=== PATIENT | male | born 1935 | race Caucasian/White ===

== ENCOUNTER 2017-03-28 13:00 | Outpatient (CLI) | payer MEDICARE, OTHER ==
[2016-08-04 12:31] VITALS: BMI 25.8
[~2017-03-28 13:00] MED LIST: ACETAMINOPHEN325 MG PO; ACETAMINOPHEN500 M1; FELODIPINE ER10 MG PO; GLUCOPHAGE1000 MG PO; GLUCOTROL 5 MG T5 MG PO; LISINOPRIL-HCTZ1 T13 PO; OMEPRAZOLE40 MG PO; ZANTAC150 MG PO; ZOCOR40 MG PO
== END 2017-03-28 23:59 | disposition home or self-care (01) ==
LOC: D.RAD 13:00
DX: R13.10 Dysphagia, unspecified (principal)

== ENCOUNTER → 2017-06-02 10:43 | Outpatient (CLI) | payer MEDICARE, OTHER ==
[2016-08-04 12:31] VITALS: BMI 25.8
== END | disposition home or self-care (01) ==
LOC: D.US 10:43
DX: R60.0 Localized edema (principal)

== ENCOUNTER → 2017-07-27 09:51 | Outpatient (CLI) | payer MEDICARE, OTHER ==
[2016-08-04 12:31] VITALS: BMI 25.8
[~2017-07-27 09:51] MED LIST changes: +FLOMAX0.4 MG PO; +LISINOPRIL10 MG PO; +PEPCID AC20 MG PO; +PLAVIX75 MG PO; +SYNTHROID50 MCG PO
== END | disposition home or self-care (01) ==
LOC: D.CT 09:51
DX: R10.13 Epigastric pain (principal)

== ENCOUNTER → 2017-11-18 07:08 | Outpatient (CLI) | payer MEDICARE, OTHER ==
[2016-08-04 12:31] VITALS: BMI 25.8
[~2017-11-18 07:08] MED LIST changes: -FLOMAX0.4 MG PO; -LISINOPRIL10 MG PO; -PEPCID AC20 MG PO; -PLAVIX75 MG PO; -SYNTHROID50 MCG PO
== END | disposition home or self-care (01) ==
LOC: D.CT 07:08
DX: R94.30 Abnormal result of cardiovascular function study, unspecified (principal); I65.23 Occlusion and stenosis of bilateral carotid arteries

== ENCOUNTER 2017-11-28 05:04 | Inpatient (IN) | payer MEDICARE, OTHER ==
[2017-11-25 12:00] LABS: HEMATOCRIT 34.7 % (42.0-54.0); HEMOGLOBIN 11.9 g/dL (13.5-17.5); MCH 31.3 pg (26.0-34.0); MCHC 34.3 g/dL (31.0-37.0); MCV 91.3 fL (80.0-100.0); MEAN PLATELET VOLUME 10.3 fL (7.4-10.4); RBC 3.8 10x6/uL (4.20-6.10); RDW 12.6 % (11.5-14.5); WBC 7.2 10x3/uL (4.8-10.8)
[2017-11-25 12:29] LABS: APTT 27.5 SECONDS (22.8-39.4); PROTIME 12.8 SECONDS (11.6-15.0)
[2017-11-25 12:32] LABS: ALBUMIN 3.9 g/dL (3.4-5.0); ANION GAP 15.4 mmol/L (8-16); BILIRUBIN - TOTAL 0.67 mg/dL (0.2-1.3); CALCIUM 9.1 mg/dL (8.5-10.1); CARBON DIOXIDE 24.7 mmol/L (21.0-32.0); CREATININE - SERUM 1.6 mg/dL (0.6-1.3); POTASSIUM - SERUM 4.1 mmol/L (3.5-5.1); PROTEIN - SERUM 7.9 g/dL (6.4-8.2)
[2017-11-25 12:38] LABS: APPEARANCE HAZY (CLEAR); BACTERIA FEW /hpf (NONE SEEN); BILIRUBIN NEGATIVE (NEGATIVE); COLOR YELLOW (YELLOW); EPITHELIAL CELLS RARE /hpf (0-5); GLUCOSE 50 mg/dL (NEGATIVE); KETONE NEGATIVE (NEGATIVE); MUCUS <1+ /lpf (NONE SEEN); NITRITE NEGATIVE (NEGATIVE); PROTEIN 1+ mg/dL (NEGATIVE); RED CELLS - URINE 0-5 /hpf (0-5); SPECIFIC GRAVITY 1.015 (1.005-1.020); UROBILINOGEN NORMAL (NORMAL)
[~2017-11-28] VITALS: Ht 175.3 cm; Wt 91.6 kg
[2017-11-28] VITALS (43 sets, daily range): BP systolic 104–153; BP diastolic 40–73; BMI 26.6; BMI 28.1
--- NOTE | ~2017-11-28 | HP ---
PATIENT: PAPA SANDOVAL MEDICAL RECORD: [id number] ACCOUNT: [id number] LOCATION:[facility] : 36 ADMISSION DATE: 11/28/17 HISTORY AND PHYSICAL EXAMINATION NamePAPA SANDOVAL (82yo, M) ID# [id number]. Date/Time11/22/2017 01:33JIYIO24 [facility] Dept[facility]NPP_[place] [facility] ClinicProviderKARIN COUGHLIN MDInsuranceMed Primary: [place] (MED[place]) Insurance # : [id number] PCP : GERRI JONAS Referring Provider Name : GERRI JONAS Employer Name : RETIRED Med Secondary: [place]AL[employer]ICE OF [place] (POS) Insurance # : [id number] Policy/Group # : AMANDA Referring Provider Name : GERRI JONAS Employer Name : RETIRED Prescription: MDIM - Member is eligible. Chief Complaint Carotid stenosis Patient's Care Team Primary Care Provider (): GERRI JONAS: [address] [place] [phone], , Referring Provider (): GERRI JONAS: [address] [place] [phone], , Network Control Operators Supervisor: NELY LOPEZ MD: [address] [place] [phone], , Patient's Pharmacies [email or web address] (ERX): [address] [place] [address], , Vitals BP:142/86 sitting R arm 11/22/2017 01:36 pm 164/90 sitting L arm 11/22/2017 01:38 pmBP Cuff Size:adult 11/22/2017 01:36 pm adult 11/22/2017 01:38 pmHR:80,reg 11/22/2017 01:38 pmHt:5 ft 9 in 11/22/2017 01:38 pmWt:180 lbs 11/22/2017 01:38 pmBMI:26.6 11/22/2017 01:38 pmAllergies Reviewed Allergies NKDAMedications Reviewed Medications uunwzam81/06/15 enteredJessica Pfuxgkatgmgapfr06/06/18 enteredKathy WilsonFlomax 0.4 mg capsule Take 1 capsule(s) every day by oral route.11/22/17 enteredKathy WilsonglipiZIDE 5 mg tablet TAKE ONE TABLET BY MOUTH ONCE DAILY09/19/17 filledMEDIMPACTlevothyroxine 50 mcg tablet TAKE ONE TABLET BY MOUTH EVERY DAY06/07/14 changedThbrett Campbell MDlisinopril 10 mg pxqovu54/17/17 filledMEDIMPACTPepcid 20 mg tablet Take 1 tablet(s) twice a day by oral route.11/22/17 enteredKathy WilsonPlavix 75 mg tablet Take 1 tablet(s) every day by oral route.11/22/17 Karl Wadeimvastatin 40 mg tablet TAKE ONE TABLET BY MOUTH AT IUDUJRT47/29/18 filledMEDIMPACTVaccines Reviewed Vaccines Vaccine TypeDateAmt.RouteSiteLot #Mfr.Exp. DateDate on VISVIS HISTORY AND PHYSICAL [id number] PAPA SANDOVAL MuusmVlqcjhybqgGervcpewj20/31/13IntramuscularLeft Obilh487QjsrxZqbegEnfng73//2 Jubrain Cortes09/06/12IntramuscularLeft Wbqejfoa291tiUnirdHbhwxDjesl82/02/ 1210/30/12ThOrlin Michelle Reviewed Problems Primary malignant neoplasm of skin Hypothyroidism Diabetes mellitus Hyperlipidemia Thrombocytopenic disorder Essential hypertension Mitral valve disorder Carotid artery stenosis - Onset: 11/21/2017, Bilateral Acute pharyngitis Biliary dyskinesia Localized, primary osteoarthritis Osteoarthritis of knee Knee pain Low back pain Sacroiliac joint pain Synovial cyst of popliteal space Heart murmur Diarrhea Abdominal pain Current tear of medial cartilage AND/OR meniscus of knee Family History Discussed Family History Unspecified Relation- Diabetes mellitus - Uncle (previously recorded as Diabetes) - Hypertensive disorder - Father (previously recorded as High Blood Pressure) - Heart disease - UncleFather lived to age 100, Mother to 97Social History Discussed Social History Cardiology Family history of heart disease?: Y Smoking Status: Former smoker (Notes: quit 1983) Smoker (1 PPD) Has smoked since age: 20 High Cholesterol: Y High blood pressure: Y Exercise level: Moderate (Notes: walking) Diabetes: Y Alcohol intake: Occasional (Notes: beer (ocassionally)) Diet: Diabetic 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 Chavez) Cholecystectomy with cholangiography, laparoscopic (surg) - 08/03/2016 Past Medical History Discussed Past Medical History Chest Pain: Y Diabetes: Y HISTORY AND PHYSICAL [id number] PAPA SANDOVAL High Blood Pressure: Y Hype rlipidemia: Y Insomnia: Y Documents for Discussion N/A Screening None recorded. HPI Cerebral Vascular Disease Reported by patient. Associated Symptoms: no headache; no nausea; no vomiting; no tinnitus; no difficulty speaking; no lethargy; no fever; no chills; no palpitations; no syncope; no loss of consciousness severe right internal carotid artery stenosis ROS Patient reports no fever, no night sweats, no significant weight gain, no significant weight loss, and no ex ercise intolerance. He reports no difficulty hearing and no ear pain. He reports no frequent nosebleeds and no nose/sinus problems. He reports no sore throat, no bleeding gums, no snoring, no dry mouth, no mouth ulcers, no oral abnormalities, and no teeth problems. He reports no chest pain, no arm pain on exertion, no shortness of breath when walking, no shortness of breath when lying down, no palpitations, and no known heart murmur. He reports no cough, no wheezing, no shortness of breath, and no coughing up blood. He reports no abdominal pain, no vomiting, normal appetite, no diarrhea, not vomiting blood, no nausea, and no constipation. He reports no incontinence, no difficulty urinating, no hematuria, and no increased frequency. He reports no loss of con sciousness, no weakness, no numbness, no seizures, no dizziness, and no headaches. He reports no depression, no sleep disturbances, feeling safe in relationship, and no alcohol abuse. ROS as noted in the HPI Physical Exam Patient is an 82-year-old male. Constitutional: General Appearance well nourished and developed and healthy-appearing. Level of Distress NAD. Ambulation ambulating normally. Cardiovascular: Apical Impulse not displaced or no thrill. Heart Auscultation normal s1 and s2, no rubs or gallops, and RRR and murmur (of aortic stenosis). Arterial Pulses no abdominal aorta bruits, femoral bruits, or popliteal bruits and 2+ bilateral, carotid 2+ bilateral, femoral 2+ bilateral, popliteal 2+ bilateral, and dorsalis pedis 2+ bilateral. Edema no edema or varicosities. Lungs: Repiratory Effort no dyspnea. Percussion no hyperresonance or dullness or flatness. Auscultation no wheezing, rhonchi, or rales / crackles and breathing sounds normal, good air movement, and CTA except as noted. Abdomen: Bowl Soun ds normal. Inspection and Palpation no tenderness, guarding, masses, or rebound tenderness and soft and non-distended. Liver non-tender and no hepatomegaly. Spleen non-tender and no splenomegaly. Hernia none palpable. Musculoskeletal System: Gait And Stance normal gait and stance. Digits and Nails normal nails and no cyanosis. Neurologic: Cranial Nerves grossly intact. Reflexes DTRs 2+ bilaterally throughout. Sensation grossly intact. HISTORY AND PHYSICAL [id number] PAPA SANDOVAL Lymph Nodes: Lymph Nodes no cervical LAD, supraclavicular LAD, axillary LAD, or inguinal LAD. Eyes: Lids and Conjunctivae no discharge or pallor and non-injected. Pupils PERRLA. Cornea grossly intact. EOM EOMI. Lens clear. Sclerae non-icteric. Neck: Neck no masses or enlarged lymph nodes and supple, trachea midline, and carotid bruits (bilateral). Thyroid no enlargement or nodules and non-tender. Skin: Inspection and Palpation no rash, lesions, ulcers, jaundice, or abnormal nevi. Assessment / Plan critical right internal carotid artery stenosis Mild aortic stenosis 1. Carotid artery stenosis - Bilateral I65.29: Occlusion and stenosis of unspecified carotid artery CAROTID STENOSIS: CARE INSTRUCTIONS Discussion Notes critical right internal carotid artery stenosis. And discussed his disease process with him in detail as well as the alternative methods of treatment. We discussed right carotid endarterectomy including the expected benefits and risk which include bleeding, infection, stroke, , and tingling imponderables. He understands all of the above and wishes to proceed with planned surgery he has a conflict in time and will call us when to schedule. He understands the consequences of delay KARIN COUGHLIN MD at 1311 CC: [id number] DICTATION DATE: 11/22/17 1300 SERVICE AGENT: ROYAL 11/23/17 113[address] [place] [address] [id number] [place] [address]
--- NOTE | ~2017-11-28 | OP ---
PATIENT NAME: PAPA SANDOVAL MEDICAL RECORD: [id number] :37 LOCATION:[facility] ADMISSION DATE:11/28/17 SURGEON: MATT COUGHLIN MD DATE OF OPERATION: 11/28/2017 SURGEON: Matt Coughlin MD ANESTHESIA: General endotracheal, Dr. Cuellar. OPERATION PERFORMED: Right carotid endarterectomy with patch angioplasty. PREOPERATIVE DIAGNOSIS: Severe right internal carotid artery stenosis. POSTOPERATIVE DIAGNOSIS: Severe right internal carotid artery stenosis. INDICATION FOR OPERATION: Severe right internal carotid artery stenosis. FINDINGS AT OPERATION: Critical right internal carotid artery stenosis. Area of stenosis greater than 90%. There were no EEG changes with clamping or unclamping of the carotid artery. After informed consent, adequate preoperative medication, and evaluation, the patient was brought to the operating room and placed on the table in supine position. After induction of general endotracheal anesthesia and application of appropriate monitoring devices, right neck was prepped and draped in sterile field. Utilizing Betadine scrub, alcohol, and Betadine solution, Betadine-impregnated drape was also used. An oblique incision was made in skin crease. Dissection was carried down to the fascia. Hemostasis was maintained with electrocautery. Facial vein was identified and divided. Utilizing sharp dissection, common carotid, internal and external carotid arteries were dissected free of surrounding structures, protecting the neurological structures. The patient was given a calculated dose of heparin after 3 minutes. Clamps were applied after 2 minutes and no EEG change. The arteriotomy was made and extended with Forte scissors. Artery underwent endarterectomy sharply. Artery underwent extensive debridement and irrigation. Utilizing a CorMatrix vascular patch and running 7-0 Prolene suture, the arteriotomy was closed with patch angioplasty technique. All maneuvers to remove trapped air were performed. The clamps were removed sequentially. There were no EEG changes. The patient was given a calculated dose of protamine to reverse the heparin. Hemostasis was assured. A #7 Luis Enrique-Patrick drain was left in depths of wound and brought out through base of the neck. Neck was again irrigated. Instrument count and sponge count were correct times 2. Neck was closed in layers utilizing 3-0 Vicryl on the platysma, 5-0 subcuticular Monocryl on the skin. Sterile dressings were applied. The patient tolerated the procedure well and transferred to cardiovascular recovery in stable condition. TRANSINT:[id number] Voice Confirmation ID: [id number] DOCUMENT ID: [id number] OPERATIVE REPORT [id number] PAPA SANDOVAL EDWARD MD CC: [id number] DICTATION DATE: 11/28/17 100 LOGISTICS ADMINISTRATOR: 11/28/17 1129 ADM IN [place] [address] [id number] [place] [address]
[~2017-11-28 05:04] MED LIST changes: +FLOMAX0.4 MG PO; +LISINOPRIL10 MG PO; +PEPCID AC20 MG PO; +PLAVIX75 MG PO; +SYNTHROID50 MCG PO
[2017-11-29] VITALS (39 sets, daily range): BP systolic 116–143; BP diastolic 46–76; Ht 175.3 cm; Wt 91.6 kg
== END 2017-11-29 13:19 | disposition home or self-care (01) | DRG 39 ==
LOC: D.SDCHOLD 05:04 → D.CVICU 05:04 → D.SDCHOLD 07:30 → D.CVICU 09:57
PROVIDERS: Internal Medicine Cardiovascular Disease
PROC: 03UK0JZ Supplement Right Internal Carotid Artery with Synthetic Substitute, Open Approach (ICD-10-PCS; 2017-11-28)
PROC: 03CK0ZZ Extirpation of Matter from Right Internal Carotid Artery, Open Approach (ICD-10-PCS; principal; 2017-11-28 07:30)
DX: I65.23 Occlusion and stenosis of bilateral carotid arteries (principal); I35.0 Nonrheumatic aortic (valve) stenosis; E11.9 Type 2 diabetes mellitus without complications; E03.9 Hypothyroidism, unspecified; E78.5 Hyperlipidemia, unspecified; D69.6 Thrombocytopenia, unspecified; I10 Essential (primary) hypertension

== ENCOUNTER → 2018-01-26 08:07 | Outpatient (CLI) | payer MEDICARE, OTHER ==
[2017-11-29 09:32] VITALS: BMI 29.8
== END | disposition home or self-care (01) ==
LOC: D.CT 08:07
DX: I65.23 Occlusion and stenosis of bilateral carotid arteries (principal)

== ENCOUNTER → 2018-03-02 07:07 | Outpatient (CLI) | payer MEDICARE, OTHER ==
[2017-11-29 09:32] VITALS: BMI 29.8
== END | disposition home or self-care (01) ==
LOC: D.CT 07:07
DX: R10.11 Right upper quadrant pain (principal)

== ENCOUNTER → 2018-04-03 06:30 | Outpatient (CLI) | payer MEDICARE, OTHER ==
[2017-11-29 09:32] VITALS: BMI 29.8
== END | disposition home or self-care (01) ==
LOC: D.CT 06:30
DX: R10.11 Right upper quadrant pain (principal)

== ENCOUNTER → 2018-04-20 07:17 | Outpatient (CLI) | payer MEDICARE, OTHER ==
[2017-11-29 09:32] VITALS: BMI 29.8
[~2018-04-20 07:17] MED LIST changes: +CELEBREX 100 M100 MG PO; +HYDROCODON-ACE1 EAC7 PO
== END | disposition home or self-care (01) ==
LOC: D.RAD 07:17
DX: R10.11 Right upper quadrant pain (principal)

== ENCOUNTER → 2018-04-25 10:12 | Outpatient (CLI) | payer MEDICARE, OTHER ==
[~2018-04-25] VITALS: Ht 175.3 cm; Wt 81.6 kg
[2018-04-25 14:55] VITALS: Ht 175.3 cm; Wt 81.6 kg
== END | disposition home or self-care (01) ==
LOC: D.FANS 10:12
DX: E11.9 Type 2 diabetes mellitus without complications (principal)

== ENCOUNTER 2018-06-03 08:48 | Emergency (ER) | payer MEDICARE, OTHER ==
[~2018-06-03] VITALS: Ht 175.3 cm; Wt 81.8 kg
[~2018-06-03 08:48] MED LIST changes: -CELEBREX 100 M100 MG PO; -HYDROCODON-ACE1 EAC7 PO
[2018-06-03 09:06] VITALS: Ht 175.3 cm; Wt 81.8 kg
[2018-06-03] MEDS ORDERED: CELEBREX 100 M100 MG PO (10:01)
[2018-06-03 10:06] VITALS: BP 128/71
== END 2018-06-03 10:13 | disposition home or self-care (01) ==
LOC: D.ER 08:48
DX: M25.551 Pain in right hip (principal); E11.9 Type 2 diabetes mellitus without complications; I10 Essential (primary) hypertension

== ENCOUNTER 2018-06-08 03:56 | Emergency (ER) | payer MEDICARE, OTHER ==
[~2018-06-08] VITALS: Ht 175.3 cm; Wt 81.8 kg
[~2018-06-08 03:56] MED LIST changes: +CELEBREX 100 M100 MG PO
[2018-06-08 04:00] VITALS: Ht 175.3 cm; Wt 81.8 kg
[2018-06-08 05:23] LABS: BASOPHILS 0.2 % (0-2); EOSINOPHILS 0.2 % (0-7); HEMATOCRIT 37.1 % (42.0-54.0); IMMATURE GRANULOCYTES 0.3 % (0-5); LYMPHOCYTES 9.3 % (15-50); MCH 31.4 pg (26.0-34.0); MCV 89.6 fL (80.0-100.0); MEAN PLATELET VOLUME 10.6 fL (7.4-10.4); MONOCYTES 5.5 % (2-11); NEUTROPHILS 84.5 % (40-80); PLATELET COUNT 189 10x3/uL (130-400); RBC 4.14 10x6/uL (4.20-6.10); WBC 9.6 10x3/uL (4.8-10.8)
[2018-06-08 05:38] LABS: ALBUMIN 3.6 g/dL (3.4-5.0); ANION GAP 14.5 mmol/L (8-16); BILIRUBIN - TOTAL 0.5 mg/dL (0.2-1.3); CALCIUM 8.7 mg/dL (8.5-10.1); CARBON DIOXIDE 21.8 mmol/L (21.0-32.0); CREATININE - SERUM 1.7 mg/dL (0.6-1.3); POTASSIUM - SERUM 4.3 mmol/L (3.5-5.1); PROTEIN - SERUM 7.3 g/dL (6.4-8.2); URIC ACID 4.1 mg/dL (2.6-7.2)
[2018-06-08] MEDS ORDERED: HYDROCODON-ACE1 EAC7 PO (06:08)
[2018-06-08 06:30] VITALS: BP 132/76
== END 2018-06-08 06:31 | disposition home or self-care (01) ==
LOC: D.ER 03:56
PROVIDERS: Family Medicine
DX: M25.561 Pain in right knee (principal); E11.9 Type 2 diabetes mellitus without complications; I10 Essential (primary) hypertension

== ENCOUNTER 2018-06-10 01:00 | Emergency (ER) | payer MEDICARE, OTHER ==
[~2018-06-10] VITALS: Ht 175.3 cm; Wt 81.8 kg
[~2018-06-10 01:00] MED LIST changes: +HYDROCODON-ACE1 EAC7 PO
[2018-06-10 01:13] VITALS: Ht 175.3 cm; Wt 81.8 kg
[2018-06-10 02:05] VITALS: BP 132/88
== END 2018-06-10 02:05 | disposition home or self-care (01) ==
LOC: D.ER 01:00
DX: M17.11 Unilateral primary osteoarthritis, right knee (principal); E11.9 Type 2 diabetes mellitus without complications

== ENCOUNTER → 2018-06-30 10:21 | Outpatient (CLI) | payer MEDICARE, OTHER ==
[2018-06-10 01:13] VITALS: BMI 26.6
== END | disposition home or self-care (01) ==
LOC: D.US 10:21
DX: I65.23 Occlusion and stenosis of bilateral carotid arteries (principal)

== ENCOUNTER 2018-07-11 05:00 | Inpatient (IN) | payer MEDICARE, OTHER ==
[2018-07-10 11:15] LABS: HEMATOCRIT 36.3 % (42.0-54.0); HEMOGLOBIN 12.7 g/dL (13.5-17.5); MCH 32.1 pg (26.0-34.0); MCV 91.7 fL (80.0-100.0); MEAN PLATELET VOLUME 10.2 fL (7.4-10.4); RBC 3.96 10x6/uL (4.20-6.10); RDW 13.2 % (11.5-14.5); WBC 5.9 10x3/uL (4.8-10.8)
[2018-07-10 11:26] LABS: APTT 24.6 SECONDS (22.8-39.4); INR 1.01 (0.85-1.17); PROTIME 12.9 SECONDS (11.6-15.0)
[2018-07-10 11:27] LABS: COLOR YELLOW (YELLOW)
[2018-07-10 11:28] LABS: APPEARANCE CLEAR (CLEAR); BILIRUBIN NEGATIVE (NEGATIVE); EPITHELIAL CELLS NSEEN /hpf (0-5); GLUCOSE 50 mg/dL (NEGATIVE); KETONE NEGATIVE (NEGATIVE); NITRITE NEGATIVE (NEGATIVE); PROTEIN 1+ mg/dL (NEGATIVE); RED CELLS - URINE 0-5 /hpf (0-5); UROBILINOGEN NORMAL (NORMAL); WHITE CELLS - URINE 0-5 /hpf (0-5)
[2018-07-10 11:29] LABS: BACTERIA NONE SEEN /hpf (NONE SEEN)
[2018-07-10 11:32] LABS: ALBUMIN 3.7 g/dL (3.4-5.0); ANION GAP 13.1 mmol/L (8-16); BILIRUBIN - TOTAL 0.9 mg/dL (0.2-1.3); CALCIUM 8.8 mg/dL (8.5-10.1); CARBON DIOXIDE 25.9 mmol/L (21.0-32.0); CREATININE - SERUM 1.5 mg/dL (0.6-1.3); PROTEIN - SERUM 7.7 g/dL (6.4-8.2)
[2018-07-11] VITALS (58 sets, daily range): BP systolic 90–176; BP diastolic 44–85; BMI 27.0
[~2018-07-11] VITALS: Ht 175.3 cm; Wt 87.5 kg
--- NOTE | ~2018-07-11 | OP ---
PATIENT NAME: PAPA SANDOVAL MEDICAL RECORD: [id number] :36 LOCATION:[facility] D.CV ADMISSION DATE:07/11/18 SURGEON: KARIN COUGHLIN MD DATE OF OPERATION: 07/11/2018 SURGEON: Karin Coughlin MD ANESTHESIA: General, Dr. Gutierrez. MUD LOGGER: Dr. Johnson. OPERATION PERFORMED: Left carotid endarterectomy with patch angioplasty. PREOPERATIVE DIAGNOSIS: Severe left internal carotid artery stenosis. POSTOPERATIVE DIAGNOSIS: Severe left internal carotid artery stenosis. INDICATION FOR OPERATION: Severe left internal carotid artery stenosis. FINDINGS AT OPERATION: Severe left internal carotid artery stenosis. There were no EEG changes with clamping or unclamping of the carotid artery. DESCRIPTION OF PROCEDURE: After informed consent and adequate preoperative medication evaluation, the patient was brought to the operating room, placed on the table in the supine position. After induction of general endotracheal anesthesia and application of appropriate monitoring devices, left neck and chest were prepped and draped in a sterile field, utilizing Betadine scrub, alcohol, and Betadine solution. Betadine-impregnated drape was also used. An oblique incision was made in the skin crease. Dissection carried down the fascia. Hemostasis maintained with electrocautery. Facial vein was identified and divided. Utilizing sharp dissection, the common carotid, internal and external carotid arteries were dissected free from surrounding structures, protecting the neurological structures. The patient was given a calculated dose of heparin. After 3 minutes, clamps were applied. After 2 minutes, no EEG change. The arteriotomy was made and extended with Forte scissors. Artery underwent endarterectomy sharply. Artery underwent extensive debridement and irrigation. Utilizing a CorMatrix vascular patch and running 6-0 Prolene suture, the arteriotomy was closed with patch angioplasty technique. All maneuvers to remove trapped air were performed. The clamps were removed sequentially. There were no EEG changes. The patient was given a calculated dose of protamine to reverse the heparin. Hemostasis was achieved. A #7 Luis Enrique-Patrick drain was left in the depths of wound and brought through the base of the neck. Neck was again irrigated. Instrument count and sponge count were correct times 2. Neck was closed in layers utilizing 3-0 Vicryl on the platysma, 5-0 subcuticular Monocryl on the skin. Sterile dressings were applied. The patient tolerated the procedure well and was transferred to CV ICU in stable condition. TRANSINT:[id number] Voice Confirmation ID: [id number] DOCUMENT ID: [id number] OPERATIVE REPORT [id number] PAPA SANDOVAL EDWARD MD at 1040 CC: [id number] DICTATION DATE: 07/11/18 1011 HOUSEHOLD ASSISTANT: 07/11/18 1113 ADM IN [address] [place] [address]
--- NOTE | ~2018-07-11 | HP ---
PATIENT: PAPA SANDOVAL MEDICAL RECORD: [id number] ACCOUNT: [id number] [facility] : 36 ADMISSION DATE: 07/11/18 PCP: GERRI JONAS DO HISTORY AND PHYSICAL EXAMINATION PAPA Rosen (82yo, M) ID# [id number]. Date/Time06/15/2018 11:89HZDFS30/09/193Service Dept.NPP_[facility] ClinicProviderKARIN COUGHLIN MDInsuranceMed Primary: [place] (MED[place]ARE) Insurance # : [id number] PCP : GERRI JONAS Referring Provider Name : GERRI JONAS Employer Name : RETIRED Med Secondary: QUALCHOICE OF [place] (POS) Insurance # : [id number] Policy/Group # : AMANDA Referring Provider Name : GERRI JONAS Employer Name : RETIRED Prescription: MDIM - Member is eligible. Chief Complaint Followup: Carotid artery stenosis s/p RCEA 11/28/17 3 month f/u-discuss surgery for LCEA Patient's Care Team Primary Care Provider (): GERRI JONAS: [address] [place] [phone], , Referring Provider (): GERRI JONAS: [address] [place] [phone], , Developmental Behavioral Physician: NELY LOPEZ MD: [address] [place] [phone], , [facility] (ERX): [phone] [facility] [id number], , Vitals BP:120/60 sitting R arm 06/15/2018 11:27 am 124/68 sitting L arm 06/15/2018 11:27 amHR:62 06/15/2018 11:27 amHt:5 ft 9 in 06/15/2018 11:23 amWt:183 lbs 06/15/2018 11:24 amBMI:27 06/15/2018 11:24 amAllergies Reviewed Allergies NKDAMedications Reviewed Medications baclofen 10 mg tablet Take 1 tablet(s) every day by oral route.06/05/18 filledMEDIMPACTcelecoxib 100 mg ywcdufp80/18/18 filledMEDIMPACTclopidogrel 75 mg tablet Take 1 tablet(s) every day by oral route.03/21/18 filledMEDIMPACTfelodipine ER 10 mg tablet,extended release 24 hr05/17/18 filledMEDIMPACTglipiZIDE 5 mg tablet TAKE ONE TABLET BY MOUTH ONCE DAILY03/14/18 filledMEDIMPACTHYDROcodone 5 mg-acetaminophen 325 mg otafxa79/23/18 filledMEDIMPACTlevothyroxine 50 mcg tablet TAKE ONE TABLET BY MOUTH EVERY DAY06/07/14 changedThomas Hugo Campbell MDlisinopril 20 mg tablet Take 1 tablet(s) every day by oral route.06/01/18 enteredSara BeckwithmethylPREDNISolone 4 mg tablets in a dose pack Take 1 dose pk(s) by oral route.06/05/18 filledMEDIMPACTPepcid 20 mg tablet Take 1 tablet(s) twice a day by oral route.11/22/17 enteredKathy Wilsonsimvastatin 40 mg tablet TAKE ONE TABLET BY MOUTH AT NFYPDKL85/07/18 filledMEDIMPACTtamsulosin 0.4 mg capsule HISTORY AND PHYSICAL [id number] PAPA SANDOVAL Take 1 capsule(s) every day by oral route.04/24/18 filledMEDIMPACTTylenol-Codeine #3 300 mg-30 mg tablet Take 1 tablet(s) every 6 hours by oral route.06/05/18 Jose Luis Deleon APRNOpal Reviewed Vaccines Vaccine TypeDateAmt.RouteSiteLot #Mfr.Exp. DateDate on VISVIS XksgsXyliojzgneFpfpfstag21/31/13IntramuscularLeft Libzh502BwistTefsmPtuhb56//2 Julie Eyknrss65/21/12IntramuscularLeft Qrvxgjmo442nkCfeusJqnooUyysr21omas Gail Campbell vaccines listed in Documents: #[id number], #[id number], #[id number] could not be added to this patient's chart. Please review these documents and add these vaccines to the patient's chart manually as needed. Problems Reviewed Problems Primary malignant neoplasm of skin Hypothyroidism Diabetes mellitus Hyperlipidemia Thrombocytopenic disorder Essential hypertension Hypertensive disorder Mitral valve disorder Carotid artery stenosis - Onset: 11/21/2017, Bilateral Acute pharyngitis Biliary dyskinesia Localized, primary osteoarthritis Osteoarthritis of knee Knee pain Low back pain Sacroiliac joint pain Synovial cyst of popliteal space Heart murmur Diarrhea Abdominal pain Current tear of medial cartilage AND/OR meniscus of knee Pain in right hip joint Family History Reviewed Family History Unspecified Relation- Diabetes mellitus - Uncle (previously recorded as Diabetes) - Heart disease - UncleFather- Hypertensive disorder - Father (previously recorded as High Blood Pressure)Father lived to age 100, Mother to 97Social History Reviewed Social History Cardiology Family history of heart disease?: Y Smoking Status: Former smoker (Notes: quit 1983) Smoker (1 PPD) Has smoked since age: 20 High Cholesterol: Y High blood pressure: Y HISTORY AND PHYSICAL [id number] PAPA SANDOVAL Exercise level: Moderate (Notes: walking) Diabetes: Y Alcohol intake: Occasional (Notes: beer (ocassionally)) Diet: Diabetic 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 Chavez) Cholecystectomy with cholangiography, laparoscopic (surg) - 08/03/2016 Past Medical History Reviewed Past Medical History Hyperlipidemia: Y Documents for Discussion Discussed the following documents: CT, ANGIOGRAM, CAROTID ARTERIES, W/WO CONTRAST - 01/26/18 US, DUPLEX, CAROTID ARTERY - 01/23/18 Screening None recorded. HPI Cerebral Vascular Disease Reported by patient. Associated Symptoms: no headache; no nausea; no vomiting; no tinnitus; no difficulty speaking; no lethargy; no fever; no chills; no palpitations; no syncope; no loss of consciousness left carotid artery stenosis ROS Patient reports no fever, no night sweat s, no significant weight gain, no significant weight loss, and no exercise intolerance. He reports no difficulty hearing and no ear pain. He reports no frequent nosebleeds and no nose/sinus problems. He reports no sore throat, no bleeding gums, no snoring , no dry mouth, no mouth ulcers, no oral abnormalities, and no teeth problems. He reports no chest pain, no arm pain on exertion, no shortness of breath when walking, no shortness of breath when lying down, no palpitations, and no known heart murmur. He re p orts no cough, no wheezing, no shortness of breath, and no coughing up blood. He reports no abdominal pain, no vomiting, normal appetite, no diarrhea, not vomiting blood, no nausea, and no constipation. He reports no incontinence, no difficulty urinating, no hematuria, and no increased frequency. He reports no loss of consciousness, no weakness, no numbness, no seizures, no dizziness, and no headaches. He reports no depression, no sleep disturbances, feeling safe in relationship, and no alcohol abuse. ROS as noted in the HPI Physical Exam Patient is an 82-year-old male. Constitutional: General Appearance well nourished and developed and healthy-appearing. Level of Distress NAD. Ambulation ambulating normally. Cardiovascular: Apical Impulse not displaced or no thrill. Heart Auscultation normal s1 and s2, no rubs or gallops, and RRR and murmur (of aortic stenosis). Arterial Pulses no abdominal aorta bruits, femoral bruits, or popliteal bruits and 2+ bilateral, carotid 2+ bilateral, femoral 2+ bilateral, popliteal 2+ bilateral, and dorsalis pedis 2+ bilateral. Edema no edema or varicosities. HISTORY AND PHYSICAL [id number] PAPA SANDOVAL Lungs: Repiratory Effort no dyspnea. Percussion no hyperresonance or dullness or flatness. Auscultation no wheezing, rhonchi, or rales / crackles and breathing sounds normal, good air movement, and CTA except as noted. Abdomen: Bowl Sounds normal. Inspection and Palpation no tenderness, guarding, masses, or rebound tenderness and soft and non-distended. Liver non-tender and no hepatomegaly. Spleen non-tender and no splenomegaly. Hernia none palpable. Musculoskeletal System: Gait And Stance normal gait and stance. Digits and Nails normal nails and no cyanosis. Neurologic: Cranial Nerves grossly intact. Reflexes DTRs 2+ bilaterally throughout. Sensation grossly intact. Lymph Nodes: Lymph Nodes no cervical LAD, supraclavicular LAD, axillary LAD, or inguinal LAD. Eyes: Lids and Conjunctivae no discharge or pallor and non-injected. Pupils PERRLA. Cornea grossly intact. EOM EOMI. Lens clear. Sclerae non-icteric. Neck: Neck no masses or enlarged lymph nodes and supple, trachea midline, and carotid bruits (bilateral). Thyroid no enlargement or nodules and non-tender. Skin: Inspection and Palpation no rash, lesions, ulcers, jaundice, or abnormal nevi. Assessment / Plan asymptomatic left carotid stenosis 1. Carotid artery stenosis - Bilateral I65.29: Occlusion and stenosis of unspecified carotid artery CAROTID STENOSIS: CARE INSTRUCTIONS Discussion Notes severe stenosis left internal carotid artery Repeat Doppler studies in June The patient will call us for a surgical day after he checks his schedule KARIN COUGHLIN MD at 1040 CC: [id number] DICTATION DATE: 06/15/18 1130 REVENUE CYCLE ADMINISTRATOR: DM 07/04/18 1236 ADM IN [place] [address] [place] [address]
[2018-07-12] VITALS (45 sets, daily range): BP systolic 97–150; BP diastolic 46–90; Ht 175.3 cm; Wt 87.5 kg
[2018-07-13] VITALS (8 sets, daily range): BP systolic 90–119; BP diastolic 54–62
[2018-07-13] MEDS ORDERED: BAYER CHEWABLE81 MG PO (08:44)
== END 2018-07-13 11:21 | disposition home or self-care (01) | DRG 39 ==
LOC: D.CVICU 05:00 → D.SDCHOLD 05:00 → D.CVICU 08:52
PROVIDERS: Internal Medicine Cardiovascular Disease
PROC: 03UL0JZ Supplement Left Internal Carotid Artery with Synthetic Substitute, Open Approach (ICD-10-PCS; 2018-07-11)
PROC: 03CL0ZZ Extirpation of Matter from Left Internal Carotid Artery, Open Approach (ICD-10-PCS; principal; 2018-07-11 07:30)
DX: I65.23 Occlusion and stenosis of bilateral carotid arteries (principal); E11.9 Type 2 diabetes mellitus without complications; E03.9 Hypothyroidism, unspecified; E78.5 Hyperlipidemia, unspecified; I10 Essential (primary) hypertension; M17.11 Unilateral primary osteoarthritis, right knee; R01.1 Cardiac murmur, unspecified; C44.90 Unspecified malignant neoplasm of skin, unspecified; D69.6 Thrombocytopenia, unspecified; M53.3 Sacrococcygeal disorders, not elsewhere classified; M54.5 Low back pain; K82.8 Other specified diseases of gallbladder; I05.9 Rheumatic mitral valve disease, unspecified; M71.20 Synovial cyst of popliteal space [Baker], unspecified knee

== ENCOUNTER → 2019-09-20 13:07 | Outpatient (CLI) | payer MEDICARE, BC ==
[2018-07-12 10:02] VITALS: BMI 28.5
--- NOTE | ~2019-09-20 | EC ---
PATIENT:PAPA SANDOVAL DATE OF SERVICE: 09/20/19 SEX: M MEDICAL RECORD: [id number] DATE OF : 37 LOCATION:[facility] AGE OF PATIENT: 84 ADMISSION DATE: 09/20/19 REFERRING PHYSICIAN: INTERPRETING PHYSICIAN: NELY HUMMEL MD ECHOCARDIOGRAM REPORT ECHO CHARGES 4 ECHO COMPLETE Date: 09/20/19 CLINICAL DIAGNOSIS: MURMUR HX OF AORTIC STENOSIS ECHOCARDIOGRAPHIC MEASUREMENTS (adult normal given) AC root (d.<3.7cm) 3.1 cm LV Septum d (<1.2 cm> 1.3 cm Valve Excursion 1.0 cm LV Septum (systole) 1.7 cm Left Atria (s.<4.0cm> 4.1 cm LVPW d(<1.2cm) 1.8 cm RV (d.<2.3cm) 3.7 cm LVPW (sytole) 2.2 cm LV diastole(<5.6CM) 4.5 cm MV E-F(>70mm/sec) cm LV systole 2.7 cm LVOT Diameter 1.9 cm MV exc.(>10mm) 1.3 cm Est.ejection fraction (50-75%) % DOPPLER: LVIT cm/sec A 94.0 cm/sec E 56.0 cm/sec LA cm/sec RVSP 22 mmHg LVOT 115 cm/sec AOP1/2T m/s Asc. Ao 183 cm/sec RVOT 91 cm/sec RA cm/sec PA 109 cm/sec AV Gradient Peak 13.45mmHg AV Mean 7.00 mmHg AV Area 1.8 cm MV Gradient Peak 6.33 mmHg MV Mean 1.86 mmHg MV Area cm COMMENTS: Heating Systems Installer: 2 HELEN IBRAHIM Web Editor: 1 Dr. Hummel TAPE# PACS Pericardial Effusion N DATE OF SERVICE: FINDINGS: 1. Left ventricular chamber size is within normal limits. Left ventricular systolic function is normal. Overall ejection fraction estimated at 55% to 60%. 2. Left atrium is enlarged at 4.1 cm. Right atrium and right ventricular chamber sizes are as well mildly dilated. 3. Valvular structures: Aortic valve demonstrates mild calcific aortic stenosis. Valve area calculates to 1.8 cm-squared and there is a gradient of 13 mm across the valve. The remaining valvular structures have normal structure ECHOCARDIOGRAM REPORT [id number] DORSEY and motion. 4. Doppler interrogation elsewise reveals mild mitral regurgitation, mild tricuspid regurgitation, no other valvular insufficiency or stenosis. Pulmonary systolic pressure is estimated at 22 mmHg. 5. No evidence of pericardial effusion or left ventricular thrombus. TRANSINT:[id number] Voice Confirmation ID: [id number] DOCUMENT ID: [id number] NELY HUMMEL MD CC: [id number] DICTATION DATE: 09/21/19 1045 WEATHERIZATION OPERATIONS MANAGER: 09/21/19 1110 [facility] CLI 09/20/19 [place] [id number] [place] [id number]
[~2019-09-20 13:07] MED LIST changes: +BAYER CHEWABLE81 MG PO
== END | disposition home or self-care (01) ==
LOC: D.HCCECHO 13:07 → D.HCCARDIO 14:00 → D.HCCECHO 14:00
PROVIDERS: ATTEND Internal Medicine Interventional Cardiology
DX: I10 Essential (primary) hypertension (principal)

== ENCOUNTER → 2019-10-05 07:03 | Outpatient (CLI) | payer MEDICARE, BC ==
[2018-07-12 10:02] VITALS: BMI 28.5
== END | disposition home or self-care (01) ==
LOC: D.US 07:03
PROVIDERS: ATTEND Internal Medicine Cardiovascular Disease
DX: I65.23 Occlusion and stenosis of bilateral carotid arteries (principal)

== ENCOUNTER → 2021-01-02 09:45 | Outpatient (CLI) | payer MEDICARE, BC ==
[2018-07-12 10:02] VITALS: BMI 28.5
== END | disposition home or self-care (01) ==
LOC: D.US 01-01 15:00
PROVIDERS: ATTEND Internal Medicine Cardiovascular Disease
DX: I65.29 Occlusion and stenosis of unspecified carotid artery (principal)

== ENCOUNTER 2021-01-04 19:33 | Inpatient (IN) | payer MEDICARE, BC ==
[~2021-01-04] VITALS: Ht 175.3 cm; Wt 90.3 kg
--- NOTE | ~2021-01-04 | HEMODYNAMI ---
PATIENT:PAPA SANDOVAL MEDICAL RECORD: [id number] : 37 LOCATION:[facility] D.2305 ADMISSION DATE: 01/04/21 Generatedon:112:15 Patient name: PAPA SANDOVAL Patient #: [id number] SSN: [id number] : 1935 Date of study: 01/05/2021 Page: Of Hemodynamic Procedure Report Patient Data Patient Demographics Procedure consent was obtained First Name: PAPA Gender: Male Last Name: LORI : 1935 [facility] Initial: C Age: 85 year(s) Patient #: [id number] Race: SSN: [id number] Additional ID: [id number] Contact details [address]: [address] [place] [address] [place] State: [place] City: [place] Zip code: [address] Admission Admission Data Admission Date: 01/04/2021 Admission Time: 22:41 Arrival Date: 01/05/2021 Arrival Time: 0:00 Admit Source: Other Insurance Payor: Medicare Room #: D.2305 [facility] #: [id number] Height (in.): 68.9 BSA: 2.06 (m2) Height (cm.): 175 BMI: 29.39 (kg/m2) Weight (lbs.): 198.42 Weight (kg.): 90 Lab Results Lab Result Date: 01/05/2021 Lab Result Time: 0:00 Biochemistry Name Units Result Min Max BUN mg/dl 45 --(----)-* 7 18 Creatinine mg/dl 1.7 --(----)-* 0.6 1.3 eGFR ml/min 41 *-(----)-- 90 120 NONAFRICAN CBC Name Units Result Min Max Hemoglobin g/dl 10 *-(----)-- 13.5 17.5 Procedure Procedure Types Cath Procedure Diagnostic Procedure LHC LH w/Coronaries Sedation Charges Moderate Sedation 10-24 minutes PCI Procedure Coronary Stent Coronary Stent Initial x2 Hemochron ACT Test Procedure Description Procedure Date Procedure Date: 01/05/2021 Procedure Start Time: 11:14 Procedure End Time: 12:11 Procedure Staff Name Function Samuel Jean-Baptiste MD Performing Physician Luisa Mims RT Monitor Ramona Chavez RT Scrub Hamida Hoover RN Nurse Procedure Data Cath Procedure Fluoroscopy Diagnostic fluoroscopy Total fluoroscopy Time: time: 14.1 min 14.1 min Diagnostic fluoroscopy Total fluoroscopy dose: dose: 3107 mGy 3107 mGy Contrast Material Contrast Material Type Amount (ml) Isovue 300 213 Entry Location Entry Primary Successful Side Size Upsize Upsize Entry Closure Succes sful Closure Location (Fr) 1 (Fr) 2 (Fr) Remarks Device Remarks Femoral Right 5 Fr 6 Fr 6 Fr Exoseal artery Short Long Estimated blood loss: 5 ml Diagnostic catheters Device Type Used For End Catheter Placement MULTIPACK JL 4.0 5Fr Left Coronary catheter Angiography MULTIPACK 3DRC 5Fr Right Coronary catheter Angiography MULTIPACK Pigtail 5 Fr LV Angiography catheter Procedure Complications No complications Procedure Medications Medication Administration Route Dosage Oxygen NRB 15 l/min Heparin Flush Bag added to field 2 bags (1000units/500ml NS) Lidocaine 2% added to field 20 0.9% NaCl I.V. 100 ml/hr Heparin Bolus I.V. 5000 units Fentanyl I.V. 25 mcg Atropine I.V. 1 mg Heparin Bolus I.V. 3000 units Fentanyl I.V. 25 mcg Plavix P.O. 75 mg Hemodynamics Rest BSA: 2.06 (m2) HGB: 10 (g/dl) O2 Consumption: Estimated: 234.56 (ml/min) O2 Cons umption indexed: Estimated:113.86 (ml/min/m) Heart Rate: 71 (bpm) Pressure Samples Time Site Value (mmHg) Purpose Heart Use Rate(bpm) 11:23 LV 119/22,22 Snapshot 78 11:45 AO 118/60(82) Snapshot 67 Gradients Valve Time Site Site Mean SEP/DFP Peak To Heart Use 1 2 (mmHg) (sec/min) Peak Rate (mmHg) (bpm) Aortic 11:24 LV AO 66 Snapshots Pre Cath Intra NCS Post Cath Vital Signs Time Heart Resp SPO2 etCO2 NIBP (mmHg) Rhythm Pain Sedation Rate (ipm) (%) (mmHg) Status Level (bpm) 11:08:03 72 38 93 0 145/81(113) NSR 0 (11) 10(A) , No pain 11:12:17 81 19 92 0 146/79(117) NSR 0 (11) 10(A) , No pain 11:16:33 80 27 93 0 131/81(118) NSR 0 (11) 10(A) , No pain 11:20:43 80 23 93 0 118/66(97) NSR 0 (11) 10(A) , No pain 11:24:49 67 23 94 0 133/73(108) NSR 0 (11) 10(A) , No pain 11:28:59 70 22 94 0 126/81(105) NSR 0 (11) 10(A) , No pain 11:33:13 71 23 93 0 111/68(100) NSR 0 (11) 10(A) , No pain 11:37:20 71 25 93 0 110/70(102) NSR 0 (11) 10(A) , No pain 11:41:28 71 27 94 0 113/72(92) NSR 0 () 10(A) , No pain 11:45:38 67 21 94 0 129/71(104) NSR 0 (11) 10(A) , No pain 11:49:52 52 20 92 0 86/61(74) NSR 0 (11) 10(A) , No pain 11:53:47 86 21 92 0 96/72(83) NSR 0 (11) 10(A) , No pain 11:57:49 81 22 93 0 96/69(83) NSR 0 (11) 10(A) , No pain 12:01:55 76 20 95 0 98/66(88) NSR 0 (11) 10(A) , No pain 12:05:56 80 19 92 0 107/71(96) NSR 0 (11) 10(A) , No pain 12:10:00 82 19 91 0 115/75(90) NSR 0 (11) 10(A) , No pain Medications Time Medication Route Dose Verified Delivered Reason Notes Effectiveness by by 11:09:24 Oxygen NRB 15 Hamida Hamida for low 02 sats l/min Sneha Hoover, RN RN 11:09:33 Heparin Flush added 2 Hamida Hamida used for Bag to bags Sneha Hoover, procedure (1000units/500ml field RN RN NS) 11:09:41 Lidocaine 2% added 20ml Hamida Samuel for local to vial St Calos Hoover anesthetic field JACKI LOZADA 11:09:52 0.9% NaCl I.V. 100 Hamida Hamida Per physician ml/hr Sneha Hoover, RN RN 11:27:56 Heparin Bolus I.V. 5000 Hamida Hamida for verifi ed units Sneha Hoover, anticoagulation w RN RN 11:45:18 Fentanyl I.V. 25 Hamida Hamida for sedation mcg Sneha Hoover, RN RN 11:50:26 Atropine I.V. 1 mg Hamida Hamida Per physician Sneha Hoover, JACKI RN 11:55:34 Heparin Bolus I.V. 3000 Hamida Hamida for verifi ed units Sneha Hoover, anticoagulation w RN RN 12:02:53 Fentanyl I.V. 25 Hamida Hamida for sedation mcg Sneha Hoover, RN RN 12:12:35 Plavix P.O. 75 mg Hamida Hamida for Sneha Hoover, antiplatelet RN RN therapy Procedure Log Time Note 10:34:01 Informed consent obtained and on chart 10:35:06 Diagnostic Cath Status : Urgent 10:35:12 Arrival Date: 01/05/2021 12:00:00 AM 10:35:17 Insurance Payor : Medicare 10:35:43 Admit Source: Other 10:35:46 ACC Patient presents with Unstable Angina CCS Anginal Class 2--Slight limitation of ordinary activity. 10:35:48 Procedure Status Urgent Heart Cath (IP). 10:35:50 Time tracking: Regular hours (M-F 7:00 - 5:00) 10:35:54 Plan of Care:Hemodynamics will remain stable., Cardiac rhythm will remain stable., Comfort level will be maintained., Respiratory function will remain adequate., Patient/ family verbilizes understanding of procedure., Procedure tolerated without complication., Recovers from procedure without complications.. 10:35:56 Pre-procedure instructions explained to patient. 10:35:56 Pre-op teaching completed and patient verbalized understanding. 10:35:57 Family unavailable. 10:35:59 Patient NPO since Midnight. 10:46:12 Lab Result : BUN 45 mg/dl 10:46:12 Lab Result : eGFR NONAFRICAN 41 ml/min 10:46:12 Lab Result : Hemoglobin 10 g/dl 10:46:12 Lab Result : Creatinine 1.7 mg/dl 10:52:04 Hamida Hoover RN sent for patient. Start room use. 10:54:34 Patient Height : 68.9 inches 10:54:37 Patient Weight : 198.42 lbs 10:56:58 [facility] 2 Alert and oriented. Tansferred to table in Supine position. 10:56:59 Warm blankets applied, and rayn hugger turned on for patient comfort. 10:56:59 Correct patient and procedure confirmed by team. 10:57:00 ECG and BP/O2 sat monitors applied to patient. 11:06:54 Baseline sample Acquired. 11:06:54 Vital chart was started 11:07:09 Full Disclosure recording started 11:07:18 H&P Date Dictated: 01/05/2021 New H&P dictated by physician.. 11:07:21 Is the patient allergic to Iodine/contrast media? No. 11:07:24 Was the patient premedicated? Yes 11:07:26 Is patient on blood thinner?Yes 11:07:29 ACC The patient was administered the following blood thiners within the last 24 hours: ACCPlavix 11:07:31 Patient diabetic? Yes. 11:07:33 If diabetic: On Metformin? No 11:07:36 Previous problem with sedation/anesthesia? No ? 11:07:39 Snore? No 11:07:40 Sleep apnea? No 11:07:41 Deviated septum? No 11:07:41 Opens mouth fully? Yes 11:07:42 Sticks out tongue? Yes 11:07:44 Airway obstruction? No ? 11:07:47 Dentures? No ? 11:07:50 Pre procedure: right dorsailis pedis pulse 2+ Normal; easily identifiable; not easily obliterated 11:08:00 Pre procedure: left dorsailis pedis pulse 2+ Normal; easily identifiable; not easily obliterated 11:08:04 Patient pain scale 5/10 ?. 11:08:14 IV patent on arrival in right antecubital with 0.9% NaCl at [facility]. 11:08:17 Lab results completed and on chart. 11:08:21 Right groin area was prepped with chlora-prep and draped in sterile fashion 11:08:22 Alarms reviewed by R. N. 11:08:23 Sharps counted by scrub and verified by R.N. 11:08:24 Physician arrived 11:08:25 --------ALL STOP TIME OUT------ 11:08:25 Final Timeout: patient, procedure, and site verified with staff and physician. All members of the team are in agreement. 11:08:27 Right Radial & Right Groin site verified by team. 11:08:30 Fire Safety Assessment: A--An alcohol-based skin anteseptic being used preoperatively., C--Open oxygen or nitrous oxide is being used., D--An ESU, laser, or fiber-optic light is being used. 11:08:34 Physical assessment completed. ASA score P 2 - A patient with mild systemic disease as per Samuel Jean-Baptiste MD. 11:08:38 3b) 30-44 Moderately reduced kidney function. 11:08:42 Maximum allowable contrast dose (3.7 X eGFR X 0.75)113 ml. 11:08:45 Sedation plan: IV Moderate Sedation Medication:Versed, Fentanyl 11:08:52 Use device set Femoral Dx 11:08:53 ACIST Syringe (40335) opened to sterile field. 11:08:53 Bag Decanter (2002S) opened to sterile field. 11:08:53 Medline Cath Pack ([id number]) opened to sterile field. 11:08:55 ACIST Hand Control (51579) opened to sterile field. 11:08:55 ACIST Manifold (85768) opened to sterile field. 11:08:55 DIAGNOSTIC Multipack 5Fr catheter set (XJ0552) opened to sterile field. 11:08:56 Tegaderm 4 x 4 (1626W) opened to sterile field. 11:08:57 SHEATH 5FR [place] (WHP124) opened to sterile field. 11:08:57 EMERALD Guide Wire (395-833) opened to sterile field. 11:09:24 Oxygen 15 l/min NRB was administered by Hamida Hoover RN; for low 02 sats; Verbal order read back and verified. 11:09:33 Heparin Flush Bag (1000units/500ml NS) 2 bags added to field was administered by Hamida Hoover RN; used for procedure; Verbal order read back and verified. 11:09:41 Lidocaine 2% 20ml vial added to field was administered by Samuel Jean-Baptiste MD; for local anesthetic; Verbal order read back and verified. 11:09:52 0.9% NaCl 100 ml/hr I.V. was administered by Hamida Hoover RN; Per physician; Verbal order read back and verified. 11:14:31 Procedure started. 11:14:34 Local anesthetic to right femoral artery with Lidocaine 2% by Samuel Jean-Baptiste MD.INITIAL ACCESS ONLY 11:15:08 A 5 Fr sheath was inserted into the Right Femoral artery 11:15:20 A MULTIPACK JL 4.0 5Fr catheter was advanced over the wire and used for Left Coronary Angiography. 11:17:30 Zero performed for pressure channel P1 11:18:36 LCA angiography performed. 11:18:38 Injector settings: Ml/sec: 3, Volume: 6, 11:20:34 Catheter removed. 11:20:39 A MULTIPACK 3DRC 5Fr catheter was advanced over the wire and used for Right Coronary Angiography. 11:23:15 RCA angiography performed. 11:23:17 Injector settings: Ml/sec: 3, Volume: 6, 11:23:21 Catheter removed. 11:23:27 A MULTIPACK Pigtail 5 Fr catheter was advanced over the wire and used for LV Angiography. 11:23:32 LV hemodynamics recorded. 11:23:32 LV gram done using BISHOP 11:23:34 Injector settings: Ml/sec: 5, Volume: 15, 11:24:19 EF : 20 % 11:25:26 Catheter removed. 11:25:45 SHEATH 6FR [place] (DGN106) opened to sterile field. 11:25:45 INFLATOR Merit BasixCompak (XA0420) opened to sterile field. 11:25:46 Asahi Minamo 300cm wire opened to sterile field. 11:27:03 Sheath upsized to a 6 Fr Short. 11:27:20 GUIDE 6FR XBLAD 3.5 catheter ([id number]) opened to sterile field. 11:27:24 Proceeding to intervention. 11:27:56 Heparin Bolus 5000 units I.V. was administered by Hamida Hoover RN; for anticoagulation; verified w Verbal order read back and verified. 11:31:04 SHEATH 6FR [place] (RSR01) opened to sterile field. 11:31:19 Sheath upsized to a 6 Fr Long. 11:31:35 6 Fr XBLAD 3.5 guide catheter was inserted over the wire 11:33:31 Guide Catheter removed. damaged. 11:33:51 GUIDE 6FR XBLAD 3.5 catheter ([id number]) opened to sterile field. 11:34:31 BMW 300cm Needles 2 J wire ([id number]) opened to sterile field. 11:34:42 BMW wire advanced. 11:35:23 Wire advanced across lesion. 11:39:01 Inflate balloon Inflation number: 1 A EUPHORA 3.0 x 20 Balloon ([id number]) was prepped and advanced across the Dist LAD 90, then inflated to 8 HARPAL for 0:30 (min:sec) 0. 11:39:28 Inflation number: 2 The EUPHORA 3.0 x 20 Balloon ([id number]) was reinflated across the Dist LAD 90, to 10 HARPAL for 0:30 (min:sec) 0. 11:39:56 Inflation number: 3 The EUPHORA 3.0 x 20 Balloon ([id number]) was reinflated across the Dist LAD 90, to 12 HARPAL for 0:30 (min:sec) 0. 11:40:21 Inflation number: 1 The EUPHORA 3.0 x 20 Balloon ([id number]) was reinflated across the Mid LAD 90, to 12 HARPAL for 0:30 (min:sec) 0. 11:40:53 Inflation number: 2 The EUPHORA 3.0 x 20 Balloon ([id number]) was reinflated across the Mid LAD 90, to 14 HARPAL for 0:30 (min:sec) 0. 11:41:17 Inflation number: 3 The EUPHORA 3.0 x 20 Balloon ([id number]) was reinflated across the Mid LAD 90, to 14 HARPAL for 0:30 (min:sec) 0. 11:41:50 Inflation number: 4 The EUPHORA 3.0 x 20 Balloon ([id number]) was reinflated across the Mid LAD 90, to 16 HARPAL for 0:30 (min:sec) 0. 11:42:22 Inflation number: 5 The EUPHORA 3.0 x 20 Balloon ([id number]) was reinflated across the Mid LAD 90, to 16 HARPAL for 0:30 (min:sec) . 11:43:09 Balloon removed over the wire. 11:45:18 Fentanyl 25 mcg I.V. was administered by Hamiad Hoover RN; for sedation; Verbal order read back and verified. 11:45:47 Place stent Inflation Number: 4 A LINH RX 2.5 x 34 stent ([id number]) was prepped and advanced across the Dist LAD 90. The stent was deployed at 14 HARPAL for 0:30 (min:sec) 0. 11:46:21 Inflation number: 1 The stent balloon was then re-inflated across the Prox LAD 90 to 20 HARPAL for 0:30 (min:sec) 0. 11:47:11 Stent catheter was removed intact over wire. 11:49:39 Place stent Inflation Number: 6 A LINH RX 3.0 x 34 stent ([id number]) was prepped and advanced across the Mid LAD 90. The stent was deployed at 14 HARPAL for 0:30 (min:sec) 0. 11:50:26 Atropine 1 mg I.V. was administered by Hamida Hoover RN; Per physician; Verbal order read back and verified. 11:52:33 Inflation number: 2 The stent balloon was then re-inflated across the Prox LAD 90 to 14 HARPAL for 0:10 (min:sec) 0. 11:54:37 Stent catheter was removed intact over wire. 11:55:34 Heparin Bolus 3000 units I.V. was administered by Hamida Hoover RN; for anticoagulation; verified w Verbal order read back and verified. 11:56:48 Place stent Inflation Number: 3 A LINH RX 3.0 x 22 stent ([id number]) was prepped and advanced across the Prox LAD 0. The stent was deployed at 14 HARPAL for 0:30 (min:sec) . 11:58:54 Stent catheter was removed intact over wire. 12:00:56 Place stent Inflation Number: 7 A INTEGRITY RX 2.75 x 12 stent ([id number]) was prepped and advanced across the Mid LAD 90. The stent was deployed at 18 HARPAL for 0:30 (min:sec) 0. 12:01:08 Stent catheter was removed intact over wire. 12:02:53 Fentanyl 25 mcg I.V. was administered by Hamida Hoover RN; for sedation; Verbal order read back and verified. 12:04:46 Place stent Inflation Number: 1 A INTEGRITY RX 3.5 x 09 stent ([id number]) was prepped and advanced across the LMCA 90. The stent was deployed at 12 HARPAL for 0:30 (min:sec) 0. 12:05:21 Stent catheter was removed intact over wire. 12:05:22 Wire removed. 12:05:22 Guide catheter removed. 12:05:31 EXOSEAL 6Fr (EX600) opened to sterile field. 12:06:40 6f DESTINATION sheath exchanged for short 6 F pinnacle sheath 12:06:46 SHEATH 6FR [place] (TFX567) opened to sterile field. 12:06:56 Sheath removed intact; hemostasis achieved with Exoseal to the Right Femoral artery. 12:06:59 Procedure ended.(Physican Out) 12:07:21 Fluoroscopy time 14.10 minutes. 12:07:25 Fluoroscopy dose: 3107 mGy 12:07:25 Flurop Dose total: 3107 12:07:33 Dose Area Product 430943 mGy/cm. 12:07:57 Contrast amount:Isovue 300 213ml. 12:08:07 Maximum allowable dose exceeded? Yes. 12:08:13 Sharps counted by scrub and verified by R.N. 12:08:13 Insertion/operative site no bleeding no hematoma. 12:08:17 Post-op/insertion site Right Femoral artery dressed using a 4 x 4 and Tegaderm. 12:08:20 Post right femoral artery:stable 12:08:21 Post Procedure Pulses reassessed and unchanged 12:08:23 Post procedure rhythm: unchanged. 12:08:26 Estimated blood loss: 5 ml 12:08:27 Post procedure instruction explained to patient.Patient verbalizes understanding. 12:08:27 Patient needs reinforcement of post procedure teaching. 12:10:49 Procedure type changed to Cath procedure, Diagnostic procedure, LHC, LHC w/Coronaries, Sedation Charges, Moderate Sedation 10-24 minutes, PCI procedure, Coronary Stent, Coronary Stent Initial x2, Hemochron ACT Test 12:10:50 Procedure and supply charges have been captured, reviewed, submitted and are correct. 12:10:54 Procedure Complication : No complications 12:10:56 Vital chart was stopped 12:10:59 [facility] Findings: MVD- PCI performed (see procedure note) 12:11:08 Operative report dictated upon procedure completion. 12:11:08 See physician's report for complete and final results. 12:11:15 Report given to ICU. 12:11:18 Patient transfered to ICU with Stretcher. 12:11:19 Procedure ended. 12:11:19 Full Disclosure recording stopped 12:11:28 ACC-PCI Only Patient was given prescriptions, or instructed by Samuel Jean-Baptiste MD to start/continue the following medications upon discharge: Plavix 12:11:30 End room use (Document Last) 12:11:41 ACT drawn and resulted at 286 seconds. (normal therapeutic range 180-240 seconds). 12:12:35 Plavix 75 mg P.O. was administered by Hamida Hoover RN; for antiplatelet therapy; Verbal order read back and verified. 12:15:00 End room use (Document Last) 12:15:20 End room use (Document Last) Intervention Summary Intervention Notes Time ActionType Lesion and Equipment Used Action# Pressure Duration Attributes 11:39:01 Inflate Dist LAD EUPHORA 3.0 x 1 8 00:30 balloon 20 Balloon ([id number]) 11:39:28 Reinflate Dist LAD EUPHORA 3.0 x 2 10 00:30 balloon 20 Balloon ([id number]) 11:39:56 Reinflate Dist LAD EUPHORA 3.0 x 3 12 00:30 balloon 20 Balloon ([id number]) 11:40:21 Reinflate Mid LAD EUPHORA 3.0 x 1 12 00:30 balloon 20 Balloon ([id number]) 11:40:53 Reinflate Mid LAD EUPHORA 3.0 x 2 14 00:30 balloon 20 Balloon ([id number]) 11:41:17 Reinflate Mid LAD EUPHORA 3.0 x 3 14 00:30 balloon 20 Balloon ([id number]) 11:41:50 Reinflate Mid LAD EUPHORA 3.0 x 4 16 00:30 balloon 20 Balloon ([id number]) 11:42:22 Reinflate Mid LAD EUPHORA 3.0 x 5 16 00:30 balloon 20 Balloon ([id number]) 11:45:47 Place stent Dist LAD LINH RX 2.5 x 4 14 00:30 34 stent ([id number]) 11:46:21 Reinflate Prox LAD LINH RX 2.5 x 1 20 00:30 stent 34 stent balloon ([id number]) 11:49:39 Place stent Mid LAD LINH RX 3.0 x 6 14 00:30 34 stent ([id number]) 11:52:33 Reinflate Prox LAD LINH RX 3.0 x 2 14 00:10 stent 34 stent balloon ([id number]) 11:56:48 Place stent Prox LAD LINH RX 3.0 x 3 14 00:30 22 stent ([id number]) 12:00:56 Place stent Mid LAD INTEGRITY RX 7 18 00:30 2.75 x 12 stent ([id number]) 12:04:46 Place stent LMCA INTEGRITY RX 1 12 00:30 3.5 x 09 stent ([id number]) Device Usage Item Name Manufacture Quantity Catalog [facility] Lot# / Number Charge Number Stock Stock Serial# Code ACIST Syringe Acist 1 58436 409433 250865 644372 20 (04920) Medical Systems Inc Bag Decanter Microtek 1 599902 66224 546338 5 (2001S) Medical Inc. Medline Cath Medline 1 [id number] 990438 63624 217119 5 Pack ([id number]) ACIST Hand Acist 1 74447 413881 384187 501795 5 Control Medical (61243) Systems Inc ACIST Manifold Acist 1 90215 595510 657976 308180 5 (79377) Medical Systems Inc DIAGNOSTIC Cardinal 1 KZ6721 553108 01172 503527 30 Multipack 5Fr Health catheter set (RP2921) Tegaderm 4 x 4 3M 1 1626W 958374 855243 861438 5 (1626W) SHEATH 5FR Terumo 1 QDW894 183289 058440 015820 5 [place] (LSW235) EMERALD Guide Cardinal 1 502-455 942282 737833 575561 5 Wire (502-455) Health MULTIPACK JL Cardinal 1 507125 5 4.0 5Fr Health catheter MULTIPACK 3DRC Cardinal 1 924734 5 5Fr catheter Health MULTIPACK Cardinal 1 060213 5 Pigtail 5 Fr Health catheter SHEATH 6FR Terumo 2 BEA938 083249 892028 538574 40 [place] (YHA164) INFLATOR Merit Merit 1 DS8542 867751 520326 919515 15 BasCodenvyBlue [facility] HospitalAura XM Medical (WR5791) Asact Mino Asact Intecc 1 [id number] 628369 2751873 730733 0 300cm wire GUIDE 6FR Cardinal 2 [id number] 681729 387104 267675 10 XBLAD 3.5 Health catheter ([id number]) SHEATH 6FR Terumo 1 RSR01 295975 33356 406484 5 Destination (RSR01) BMW 300cm Serrano 1 [id number] 718633 635648 351566 5 Needles 2 J Vascular wire ([id number]) EUPHORA 3.0 x Medtronic 1 [id number] 702740 268508 512483 5 [id number] 20 Balloon ([id number]) LINH RX 2.5 x Medtronic 1 [id number] 265247 5111547 187067 5 [id number] 34 stent ([id number]) LINH RX 3.0 x Medtronic 1 [id number] 897702 5975671 185226 5 [id number] 34 stent ([id number]) LINH RX 3.0 x Medtronic 1 [id number] 871043 7308140 170439 5 [id number] 22 stent ([id number]) INTEGRITY RX Medtronic 1 [id number] 816538 951630 567238 5 [id number] 2.75 x 12 stent ([id number]) INTEGRITY RX Medtronic 1 [id number] 712187 537126 078271 5 [id number] 3.5 x 09 stent ([id number]) EXOSEAL 6Fr Cardinal 1 EX600 560539 439557 411636 10 (EX600) Health Signature Audit [place] Stage Time Signature Unsigned Intra-Procedure 01/05/2021 Luisa Mims 12:15:00 PM RT(R) Intra-Procedure 01/05/2021 Hamida Hoover, 12:15:20 PM RN Intra-Procedure 01/05/[address] 12:15:44 PM Calos LOZADA Signatures Performing Physician : Samuel Signature : St Live MD Date : Time : Monitor : Luisa Mims RT Signature : Date : Time : Nurse : Hamida Hoover, RN Signature : Date : Time : [facility] [address] [place] [address]
[2021-01-04 20:00] LABS: BASOPHILS 0.3 % (0-2); EOSINOPHILS 4.6 % (0-7); HEMATOCRIT 30.4 % (42.0-54.0); IMMATURE GRANULOCYTES 0.2 % (0-5); LYMPHOCYTE ABS# 0.94 10x3/uL (1.32-3.57); MCH 31.9 pg (26.0-34.0); MCHC 32.9 g/dL (31.0-37.0); MCV 97.1 fL (80.0-100.0); MEAN PLATELET VOLUME 10.4 fL (7.4-10.4); MONOCYTES 11.2 % (2-11); NEUTROPHIL ABS# 4.31 10x3/uL (1.78-5.38); NEUTROPHILS 68.7 % (40-80); RBC 3.13 10x6/uL (4.20-6.10); RDW 14.8 % (11.5-14.5); WBC 6.3 10x3/uL (4.8-10.8)
[2021-01-04 20:01] LABS: PLATELET COUNT 114 10x3/uL (130-400)
[2021-01-04 20:03] LABS: INR 1.3 (0.85-1.17)
[2021-01-04 20:04] LABS: APTT 30.5 SECONDS (22.8-39.4)
[2021-01-04 20:26] LABS: CALC OSMOLALITY 294 mosm/kg (275-300); CALCIUM 7.9 mg/dL (8.5-10.1); CARBON DIOXIDE 21.2 mmol/L (21.0-32.0); CHLORIDE - SERUM 107 mmol/L (98-107); CREATININE - SERUM 1.8 mg/dL (0.6-1.3); POTASSIUM - SERUM 4.9 mmol/L (3.5-5.1); SODIUM 139 mmol/L (136-145); UREA NITROGEN 44 mg/dL (7-18); eGFR NON AFRICAN AMERICAN 38 mL/min (90-120)
[2021-01-04 20:28] LABS: GLUCOSE 207 mg/dL (74-106)
[2021-01-04 20:30] VITALS: BP 129/67
[2021-01-04 20:43] LABS: ALBUMIN 3.8 g/dL (3.4-5.0); ALKALINE PHOSPHATASE 84 U/L (30-120); ALT (SGPT) 33 U/L (10-68); CKMB 3.6 U/L (0.0-3.6); CREATINE KINASE 146 UL (21-232); MAGNESIUM - SERUM 2.7 mg/dL (1.8-2.4); PRO BNP 1476 pg/mL (0-450); TROPONIN-I 0.016 ng/mL (0.000-0.060)
[2021-01-04 21:30] VITALS: BP 110/74
[2021-01-04 22:30] VITALS: BP 126/69
[2021-01-04 22:38] LABS: BILIRUBIN NEGATIVE (NEGATIVE); KETONE NEGATIVE (NEGATIVE); NITRITE NEGATIVE (NEGATIVE); UROBILINOGEN NORMAL mg/dL (< 2)
[2021-01-04 23:46] VITALS: BP 156/77; BMI 29.4
[2021-01-05] VITALS (39 sets, daily range): BP systolic 96–168; BP diastolic 66–117; Ht 175.3 cm; Wt 90.3 kg
[2021-01-05 03:45] LABS: BASOPHILS 0.3 % (0-2); EOSINOPHILS 1.5 % (0-7); HEMATOCRIT 30.6 % (42.0-54.0); IMMATURE GRANULOCYTES 0.3 % (0-5); LYMPHOCYTE ABS# 0.88 10x3/uL (1.32-3.57); LYMPHOCYTES 13.5 % (15-50); MCH 31.5 pg (26.0-34.0); MCHC 32.7 g/dL (31.0-37.0); MCV 96.5 fL (80.0-100.0); MEAN PLATELET VOLUME 10.7 fL (7.4-10.4); MONOCYTES 11.1 % (2-11); NEUTROPHIL ABS# 4.77 10x3/uL (1.78-5.38); NEUTROPHILS 73.3 % (40-80); PLATELET COUNT 130 10x3/uL (130-400); RBC 3.17 10x6/uL (4.20-6.10); RDW 14.7 % (11.5-14.5); WBC 6.5 10x3/uL (4.8-10.8)
[2021-01-05 03:51] LABS: INR 1.18 (0.85-1.17); PROTIME 13.9 SECONDS (11.6-15.0)
[2021-01-05 03:53] LABS: D-DIMER-QUANTITATIVE 1.39 ug/mLFEU (0.20-0.54)
[2021-01-05 04:07] LABS: APTT 36.9 SECONDS (22.8-39.4)
[2021-01-05 04:12] LABS: ALBUMIN 3.6 g/dL (3.4-5.0); ALKALINE PHOSPHATASE 82 U/L (30-120); ALT (SGPT) 29 U/L (10-68); BILIRUBIN - TOTAL 1.38 mg/dL (0.2-1.3); CALCIUM 8.4 mg/dL (8.5-10.1); CARBON DIOXIDE 24.8 mmol/L (21.0-32.0); CHLORIDE - SERUM 108 mmol/L (98-107); CHOL - HDL RATIO 2.9 ratio (2.3-4.9); CHOLESTEROL, TOTAL 121 mg/dL (0-200); CKMB 23.2 U/L (0.0-3.6); CREATININE - SERUM 1.7 mg/dL (0.6-1.3); HDL CHOLESTEROL 42 mg/dL (32-96); LDL CHOLESTEROL 69 mg/dL (0-100); LDL-HDL RATIO 1.6 ratio (1.5-3.5); MAGNESIUM - SERUM 2.6 mg/dL (1.8-2.4); PHOSPHOROUS 3.8 mg/dL (2.5-4.9); POTASSIUM - SERUM 4.9 mmol/L (3.5-5.1); PRO BNP 1608 pg/mL (0-450); PROTEIN - SERUM 7.3 g/dL (6.4-8.2); SODIUM 139 mmol/L (136-145); TRIGLYCERIDE 53 mg/dL (30-200); UREA NITROGEN 45 mg/dL (7-18); eGFR NON AFRICAN AMERICAN 41 mL/min (90-120)
[2021-01-05 04:19] LABS: CALC OSMOLALITY 291 mosm/kg (275-300); CREATINE KINASE 247 UL (21-232); GLUCOSE 130 mg/dL (74-106)
--- NOTE | 2021-01-05 04:31 | NUR ---
DR QUINONES, CALLED BACK, NOTIFIED OF CONSULT AND CRITICAL TROPONIN 3.190
--- NOTE | 2021-01-05 05:29 | NUR ---
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
--- NOTE | 2021-01-05 07:00 | NUR ---
REPORT RECEIVED. ASSESSMENT COMPLETE PER FLOW SHEET
[2021-01-05 09:34] LABS: CKMB 26.3 U/L (0.0-3.6); CREATINE KINASE 300 UL (21-232)
[2021-01-05 09:42] LABS: TROPONIN-I 3.775 ng/mL (0.000-0.060)
--- NOTE | 2021-01-05 10:55 | NUR ---
PT TO COMMUNITY CASE MANAGER AT THIS TIME.
--- NOTE | 2021-01-05 12:40 | NUR ---
PT BACK FROM ADVERTISING SPACE CLERK AT THIS TIME. R GROIN FEMSTOP ON. SMALL HEMATOMA NOTED AND MARKED. PULSE PRESENT. VSS.
[2021-01-05 15:27] LABS: ALT (SGPT) 30 U/L (10-68); CHOL - HDL RATIO 2.6 ratio (2.3-4.9); CHOLESTEROL, TOTAL 116 mg/dL (0-200); CKMB 80.5 U/L (0.0-3.6); HDL CHOLESTEROL 44 mg/dL (32-96); LDL CHOLESTEROL 65 mg/dL (0-100); LDL-HDL RATIO 1.5 ratio (1.5-3.5); TRIGLYCERIDE 38 mg/dL (30-200)
[2021-01-05 15:32] LABS: CREATINE KINASE 550 UL (21-232); TROPONIN-I 12.867 ng/mL (0.000-0.060)
--- NOTE | 2021-01-05 16:00 | CN ---
PATIENT NAME:PAPA SANDOVAL MEDICAL RECORD: [id number] : 37 LOCATION:[id number] ADMIT DATE: 01/04/21 ACCOUNT: [id number] CONSULTING PHYSICIAN: GEETA TAM MD REFERRING PHYSICIAN: GEETA PATTEN MD DATE OF CONSULTATION: 01/05/2021 HISTORY OF PRESENT ILLNESS: An 85-year-old gentleman with a history of cerebrovascular disease status post carotid endarterectomy, has a history of hypertension, hyperlipidemia, diabetes, actually is quite healthy, active, has noticed marked dyspnea when planning his flower bed the last few days, had abrupt onset yesterday of shortness of breath with rest accompanied by indigestion type symptomatologies, symptomatology with nausea, profuse diaphoresis. Subsequently, he is ruled in for NSTEMI. We were asked to see him concerning his cardiovascular status. PAST MEDICAL HISTORY: Incudes; 1. History of cerebrovascular disease as described above. 2. Hypertension. 3. Hyperlipidemia. 4. Diabetes mellitus. 5. Osteoarthritis. 6. Hypothyroidism, on replacement. MEDICATIONS: Include Flomax 0.4 mg p.o. every day, Plavix 75 every day, felodipine 10 mg p.o. every day, lisinopril 10 every day, simvastatin 40 every day, aspirin 81 every day, Synthroid 50 mcg daily, glipizide 5 mg p.o. b.i.d. ALLERGIES: None known. SOCIAL HISTORY: Stays quite active for 86 years of age. Nonsmoker, nondrinker. Easily takes care of all his ADLs. REVIEW OF SYSTEMS: The patient reports easy bruising but reports no swollen glands. The patient reports no fever, no night sweats, no significant weight gain, no significant weight loss. No significant exercise tolerance. The patient reports no dry eyes, no irritation, no vision change. Patient reports no difficulty hearing and no ear pain. Patient reports no frequent nose bleeds or nose and sinus problems. Patient reports on arm pain on exertion. No shortness of breath while lying down. No history of heart murmur. Patient reports no cough, no wheezing or coughing up blood. Patient reports no abdominal pain, no vomiting. Normal appetite. No diarrhea and not vomiting blood. No nausea and no constipation. Patient reports no incontinence. No difficulty urinating. No hematuria. No increased frequency. Patient reports no muscle aches. No weakness, no arthralgias, no back pain. No swelling of the extremities. Patient reports no abnormal mole, no jaundice, no rashes. Reports no loss of consciousness. No weakness and no numbness. No seizures, dizziness, or headaches. The patient reports no depression, no sleep disturbance, feeling safe in a relationship and no alcohol abuse. Patient reports on fatigue. Reports no runny nose or sinus pressure. No itching, no hives, and no frequent sneezing. PHYSICAL EXAMINATION: GENERAL: Pleasant, in no acute distress, appears younger than stated age. VITAL SIGNS: Blood pressure 136/73, pulse 68 and regular. CONSULT REPORT [id number] PAPA SANDOVAL HEENT: Normocephalic, atraumatic. NECK: No JVD or bruit. HEART: Regular. II/ systolic ejection murmur. LUNGS: Good air excursion. ABDOMEN: Soft, nontender. EXTREMITIES: Pulses are decreased, 1+. There is no edema. IMPRESSION: Non-ST elevation myocardial infarction. PLAN: For angiography and intervention based on the above. TRANSINT:[id number] Voice Confirmation ID: [id number] DOCUMENT ID: [id number] GEETA TAM MD at 1600 CC: [id number] DICTATION DATE: 01/05/21 1112 LAV CREWMAN: 01/05/21 1318 ADM IN [place] [id number] [place] [address]
[2021-01-06] VITALS (16 sets, daily range): BP systolic 110–131; BP diastolic 59–86
--- NOTE | 2021-01-06 02:33 | NUR ---
CHG BATH GIVEN, LINENS CHANGED
[2021-01-06 04:56] LABS: BASOPHILS 0.1 % (0-2); EOSINOPHILS 0.1 % (0-7); HEMATOCRIT 28.6 % (42.0-54.0); HEMOGLOBIN 9.1 g/dL (13.5-17.5); IMMATURE GRANULOCYTES 0.1 % (0-5); LYMPHOCYTE ABS# 1.14 10x3/uL (1.32-3.57); MCH 31.1 pg (26.0-34.0); MCHC 31.8 g/dL (31.0-37.0); MCV 97.6 fL (80.0-100.0); MEAN PLATELET VOLUME 11.1 fL (7.4-10.4); MONOCYTES 13.8 % (2-11); NEUTROPHIL ABS# 5.39 10x3/uL (1.78-5.38); NEUTROPHILS 70.9 % (40-80); PLATELET COUNT 136 10x3/uL (130-400); RBC 2.93 10x6/uL (4.20-6.10); RDW 15.2 % (11.5-14.5); WBC 7.6 10x3/uL (4.8-10.8)
[2021-01-06 05:16] LABS: ALBUMIN 3.2 g/dL (3.4-5.0); ANION GAP 15.2 mmol/L (8-16); BILIRUBIN - TOTAL 1.62 mg/dL (0.2-1.3); CALCIUM 8.3 mg/dL (8.5-10.1); MAGNESIUM - SERUM 2.4 mg/dL (1.8-2.4); POTASSIUM - SERUM 5.2 mmol/L (3.5-5.1); PROTEIN - SERUM 6.8 g/dL (6.4-8.2)
[2021-01-06 05:21] LABS: PHOSPHOROUS 5.1 mg/dL (2.5-4.9)
--- NOTE | 2021-01-06 12:08 | NUR ---
PATIENT AT 75 PERCENT OF HIS BREAKFAST THIS AM AND IS NOW ON 6 LITERS RACHEL FLOW AND SATS ARE GOOD. IV SITE INTACT AND NO COMPLAINTS VOICED.
--- NOTE | 2021-01-06 13:06 | NUR ---
REPORT GIVEN TO RADHA AND PATIENT TO MOVE TO 2222.
--- NOTE | 2021-01-06 20:00 | NUR ---
ALERT RESTING IN BED, DENIES PAIN OR NEEDS AT THIS TIME, SEE SHIFT ASSESSMENT CALL LIGHT IN REACH
[2021-01-07 04:00] VITALS: BP 136/72
[2021-01-07 06:40] LABS: BASOPHILS 0.2 % (0-2); EOSINOPHILS 0.5 % (0-7); HEMATOCRIT 26.6 % (42.0-54.0); HEMOGLOBIN 8.5 g/dL (13.5-17.5); IMMATURE GRANULOCYTES 0.4 % (0-5); LYMPHOCYTE ABS# 0.98 10x3/uL (1.32-3.57); MCH 30.7 pg (26.0-34.0); MEAN PLATELET VOLUME 11.1 fL (7.4-10.4); MONOCYTES 14.1 % (2-11); NEUTROPHIL ABS# 5.94 10x3/uL (1.78-5.38); NEUTROPHILS 72.8 % (40-80); PLATELET COUNT 128 10x3/uL (130-400); RBC 2.77 10x6/uL (4.20-6.10); RDW 14.9 % (11.5-14.5); WBC 8.2 10x3/uL (4.8-10.8)
[2021-01-07 07:05] LABS: ALBUMIN 2.9 g/dL (3.4-5.0); ANION GAP 16.8 mmol/L (8-16); BILIRUBIN - TOTAL 1.39 mg/dL (0.2-1.3); CALCIUM 8.3 mg/dL (8.5-10.1); CARBON DIOXIDE 20.9 mmol/L (21.0-32.0); MAGNESIUM - SERUM 2.6 mg/dL (1.8-2.4); PHOSPHOROUS 4.3 mg/dL (2.5-4.9); POTASSIUM - SERUM 4.7 mmol/L (3.5-5.1); PROTEIN - SERUM 6.4 g/dL (6.4-8.2)
[2021-01-07 08:55] VITALS: BP 117/62
--- NOTE | 2021-01-07 10:01 | OP ---
PATIENT NAME: PAPA SANDOVAL MEDICAL RECORD: [id number] :37 LOCATION:D.MS Card3 ADMISSION DATE:01/04/21 SURGEON: GEETA TAM MD DATE OF OPERATION: 01/05/2021 PROCEDURE: Left heart catheterization, selective coronary angiography, plus PTCA stenting to the left main and LAD, right femoral artery approach. CATHETERS: A 5-Macedonian sheath, 5/4 left and right Levy, 5/4 pig. The procedure was well tolerated. The patient returned to berry. Sheath was removed. ExoSeal device placed. FINDINGS: Left ventriculography in 30-degree BISHOP view shows global hypokinesis with more marked anterior hypokinesis. LV function reduced to 25%. CORONARY ANATOMY: LEFT MAIN: Left main is free of disease. LAD: The left main tapers to a 60% stenosis. LAD itself is diffuse, mostly throughout the proximal third and distal third of this vessel with a greatest being 90%. CIRCUMFLEX: The circumflex has about 80% stenosis. RIGHT CORONARY ARTERY: Large vessel, moderate luminal irregularities. DESCRIPTION OF INTERVENTION: A 300 cm Minamo wire was placed down the distal portion of the LAD and predeployment to 2.5 x 20 mm balloon was taken up and down the LAD. Stents were then deployed in following fashion, distally a 2.5 x 34 mm Onxy stent, proximally a 3.0 x 34 mm and 3.0 x 20 mm both drug-eluting stents. At this point in time, left main was noted with a 60% residual. Given large right coronary artery and revascularization of the LAD, it was decided to stent the left main across the circumflex jailing this vessel. We used a 3.5 x 15 mm Sebastien drug-eluting stent up to 14 atmospheres. Final angiography shows resolution of a long diffuse 90% plus stenosis LAD, 60-70% stenosis of the left main with jailing of the circumflex, and no significant residual. MICHAELA flow was 3 throughout the procedure. Sheath closed with ExoSeal device. Plavix load in the lab. TRANSINT:[id number] Voice Confirmation ID: [id number] DOCUMENT ID: [id number] GEETA TAM MD at 1001 CC: [id number] DICTATION DATE: 01/05/21 1226 ARTIFICIAL INSEMINATION TECHNICIAN: 01/05/212008 ADM IN [facility] [address] [id number]
[2021-01-07 12:47] VITALS: BP 131/59
--- NOTE | 2021-01-07 13:41 | NUR ---
Nutrition follow-up: Diet order: low sodium PO intake 50-75% of last 2 meals Labs reviewed Wt: 199# No BM charted since admit; no laxatives ordered Will continue to provide food choices and honor food preferences. Will offer nutritional supplements. RDN follow-up: 01/12/21
--- NOTE | 2021-01-07 16:16 | NUR ---
REHAB PRESCREENING Rehab referral received and chart reviewed. PT and OT have been ordered. Rehab will continue to follow for evaluation documentation in order to assess admission criteria. Thank you for this referral! Sarahi James, SPORTS WRITER Rehab PD
[2021-01-07 17:07] VITALS: BP 133/64
[2021-01-07 20:00] VITALS: BP 134/74
[2021-01-08 04:00] VITALS: BP 103/56
--- NOTE | 2021-01-08 05:48 | NUR ---
I have reviewed this patient and I concur with the Shift Assessment completed by the Licensed Practical Nurse today this shift.
[2021-01-08 06:14] LABS: BASOPHILS 0.3 % (0-2); EOSINOPHILS 2.4 % (0-7); HEMOGLOBIN 8.4 g/dL (13.5-17.5); IMMATURE GRANULOCYTES 0.3 % (0-5); LYMPHOCYTE ABS# 1.01 10x3/uL (1.32-3.57); LYMPHOCYTES 14.3 % (15-50); MCHC 32.3 g/dL (31.0-37.0); MCV 95.9 fL (80.0-100.0); MEAN PLATELET VOLUME 11.1 fL (7.4-10.4); NEUTROPHIL ABS# 4.94 10x3/uL (1.78-5.38); NEUTROPHILS 69.7 % (40-80); PLATELET COUNT 141 10x3/uL (130-400); RBC 2.71 10x6/uL (4.20-6.10); RDW 14.7 % (11.5-14.5); WBC 7.1 10x3/uL (4.8-10.8)
[2021-01-08 06:43] LABS: ALBUMIN 2.9 g/dL (3.4-5.0); ANION GAP 15.2 mmol/L (8-16); BILIRUBIN - TOTAL 1.26 mg/dL (0.2-1.3); CARBON DIOXIDE 21.4 mmol/L (21.0-32.0); CREATININE - SERUM 1.9 mg/dL (0.6-1.3); MAGNESIUM - SERUM 2.7 mg/dL (1.8-2.4); PHOSPHOROUS 3.7 mg/dL (2.5-4.9); POTASSIUM - SERUM 4.6 mmol/L (3.5-5.1); PROTEIN - SERUM 5.9 g/dL (6.4-8.2)
[2021-01-08 09:11] VITALS: BP 121/59
[2021-01-08 12:57] VITALS: BP 140/81
[2021-01-08] MEDS ORDERED: IPRAT-ALBUT 0.5-3 ML UPD (14:01)
[2021-01-08] MEDS ORDERED: TESSALON PERLE100 MG PO (14:02)
[2021-01-08] MEDS ORDERED: MUCINEX600 MG PO (14:03)
[2021-01-08] MEDS ORDERED: PULMICORT0.5 MG/21 UPD (14:03)
[2021-01-08] MEDS ORDERED: LASIX40 MG PO (14:04)
--- NOTE | 2021-01-08 15:30 | MORECARE ---
CASE MANAGEMENT DISCHARGE SUMMARY PATIENT: PAPA SANDOVAL UNIT: [id number] ADM DATE: 01/04/21 AGE: 85 : 36 SEX: M ROOM/BED: D.[facility] AUTHOR: JUNO,DOC PHYSICIAN: REFERRING PHYSICIAN: GEETA PATTEN MD DATE OF SERVICE: 01/08/21 Case Management Discharge Planning Summary DCP REVIEW SUMMARY ANTICIPATED D/C DATE: EXPECTED LOS : CASE STATUS: DCP Initiated INITIAL REVIEW: 01/04/2021 INITIAL REVIEWER: Mayela Gaitan FINAL DISCHARGE DISPOSITION: : FINAL REVIEWER: FINAL REVIEW DATE: DCP Focus Questions & Answers - Added on: QUESTION: ANSWER : PROVIDER NETWORKING REVIEW DATE: 01/08/2021 SERVICE TYPE: Durable Medical Equipment REVIEWER: Mayela Gaitan PROVIDER: FINAL PROVIDER? : FINAL DATE/TIME: CT PATIENT: PAPA SANDOVAL ENCOUNTER: [id number] MEDICAL RECORD#: [id number] ADMISSION DATE: 01/04/2021 DISCHARGE DATE: ATTENDING MD: : AGE: 85 MARITAL STATUS: M DC PLAN ID: [id number] FACILITY: [facility] PRINTED ON: 01/08/21 15:30 CT All edits/amendments must be made on the electronic document DICTATION DATE: 01/08/21 152 DISINTEGRATOR OPERATOR: ROYAL 01/08/211528 RPT#: [id number] DC DATE: STATUS: ADM IN [facility] [address] [place] [address] END OF REPORT
--- NOTE | 2021-01-08 15:44 | MORECARE ---
CASE MANAGEMENT DISCHARGE SUMMARY PATIENT: PAPA SANDOVAL UNIT: [id number] ADM DATE: 01/04/21 AGE: 85 : 36 SEX: M ROOM/BED: D.2223 AUTHOR: JUNO,DOC PHYSICIAN: REFERRING PHYSICIAN: GEETA PATTEN MD DATE OF SERVICE: 01/08/21 Case Management Discharge Planning Summary COMMENTS ENTERED DATE: 01/08/21 15:32 CT COMMENT TYPE: Discharge Planning REVIEWER: Mayela Gaitan PATIENT IS BEING DC'D TO HOME TODAY. NEEDS OXYGEN FOR HOME. ORDER FAXED TO [facility] AND THEY WILL DELIVER TO HIS ROOM. NO OTHER NEEDS IDENTIFIED. IMM SIGNED AND COPY ON CHART. CM TO FOLLOW AND ASSIST NEEDED. DCP REVIEW SUMMARY ANTICIPATED D/C DATE: EXPECTED LOS : CASE STATUS: DCP Initiated INITIAL REVIEW: 01/04/2021 INITIAL REVIEWER: Mayela Gaitan FINAL DISCHARGE DISPOSITION: : FINAL REVIEWER: FINAL REVIEW DATE: DCP Focus Questions & Answers - Added on: QUESTION: ANSWER : PROVIDER NETWORKING REVIEW DATE: 01/08/2021 SERVICE TYPE: Durable Medical Equipment REVIEWER: Mayela Gaitan PROVIDER: FINAL PROVIDER? : FINAL DATE/TIME: CT PATIENT: PAPA SANDOVAL ENCOUNTER: [id number] MEDICAL RECORD#: [id number] ADMISSION DATE: 01/04/2021 DISCHARGE DATE: ATTENDING MD: : AGE: 85 MARITAL STATUS: M DC PLAN ID: [id number] FACILITY: [facility] PRINTED ON: 01/08/21 15:44 CT All edits/amendments must be made on the electronic document DICTATION DATE: 01/08/21 154 SUPERVISOR COAL HANDLING: DM 01/08/21 1544 RPT#: [id number] DC DATE: STATUS: ADM IN [facility] [address] [place] [address] END OF REPORT
== END 2021-01-08 16:30 | disposition home or self-care (01) | DRG 246 ==
LOC: D.ER 19:33 → D.ICU 22:41 → D.MS 22:41
PROVIDERS: Family Medicine; Internal Medicine Interventional Cardiology; ADMIT Family Medicine; ATTEND Family Medicine
PROC: B2151ZZ Fluoroscopy of Left Heart using Low Osmolar Contrast (ICD-10-PCS; 2021-01-05)
PROC: 4A023N7 Measurement of Cardiac Sampling and Pressure, Left Heart, Percutaneous Approach (ICD-10-PCS; 2021-01-05)
PROC: 027035Z Dilation of Coronary Artery, One Artery with Two Drug-eluting Intraluminal Devices, Percutaneous Approach (ICD-10-PCS; principal; 2021-01-05 10:00)
PROC: B2111ZZ Fluoroscopy of Multiple Coronary Arteries using Low Osmolar Contrast (ICD-10-PCS; 2021-01-05 10:00)
DX: I13.0 Hypertensive heart and chronic kidney disease with heart failure and stage 1 through stage 4 chronic kidney disease, or unspecified chronic kidney disease (principal); I50.33 Acute on chronic diastolic (congestive) heart failure; I21.4 Non-ST elevation (NSTEMI) myocardial infarction; J96.01 Acute respiratory failure with hypoxia; E11.22 Type 2 diabetes mellitus with diabetic chronic kidney disease; N18.9 Chronic kidney disease, unspecified; D64.9 Anemia, unspecified; E03.9 Hypothyroidism, unspecified; E78.5 Hyperlipidemia, unspecified; M19.90 Unspecified osteoarthritis, unspecified site

== ENCOUNTER 2021-01-10 01:59 | Inpatient (IN) | payer MEDICARE, BC ==
[~2021-01-10] VITALS: Ht 175.3 cm; Wt 86.4 kg
[2021-01-10] VITALS (7 sets, daily range): BP systolic 99–139; BP diastolic 59–70; Ht 175.3 cm; Wt 86.4 kg
--- NOTE | ~2021-01-10 | EC ---
PATIENT:PAPA SANDOVAL DATE OF SERVICE: 01/10/21 SEX: M MEDICAL RECORD: [id number] DATE OF : 37 LOCATION:D.M2 D.211 AGE OF PATIENT: 85 ADMISSION DATE: 01/10/21 REFERRING PHYSICIAN: INTERPRETING PHYSICIAN: SHILPA SANTANA MD ECHOCARDIOGRAM REPORT ECHO CHARGES 5 ECHO LIMITED Date: 01/11/21 CLINICAL DIAGNOSIS: NSTEMI ECHOCARDIOGRAPHIC MEASUREMENTS (adult normal given) AC root (d.<3.7cm) 0 cm LV Septum d (<1.2 cm> 0 cm Valve Excursion 0 cm LV Septum (systole) 0 cm Left Atria (s.<4.0cm> 0 cm LVPW d(<1.2cm) 0 cm RV (d.<2.3cm) 0 cm LVPW (sytole) 0 cm LV diastole(<5.6CM) 0 cm MV E-F(>70mm/sec) 0 cm LV systole 0 cm LVOT Diameter 0 cm MV exc.(>10mm) 0 cm Est.ejection fraction (50-75%) % DOPPLER: LVIT cm/sec A 0 cm/sec E 0 cm/sec LA 0 cm/sec RVSP 42 mmHg LVOT 0 cm/sec AOP1/2T 0 m/s Asc. Ao 0 cm/sec RVOT 0 cm/sec RA 0 cm/sec PA 0 cm/sec AV Gradient Peak 0 mmHg AV Mean 0 mmHg AV Area cm MV Gradient Peak 0 mmHg MV Mean 0 mmHg MV Area 0 cm COMMENTS: Medical Staff Manager: Teagan MI Hydraulic Oil Tool Operator: 4 Dr. Santana TAPE# Pericardial Effusion N DATE OF SERVICE: The patient comes in with an NSTEMI. The patient's ejection fraction appears to be slightly improved compared to previous ejection fraction. The overall ejection fraction appears to be in the 45% to 50% range. Lateral wall was not as well seen as we would like because that was a question about the patient's clinical scenario, but it appears that the lateral wall has mild hypokinesis, but the anterior septal wall appears to be more contractile. The RVSP is mildly elevated at 35-40 mmHg. There is mild mitral regurgitation and the other valves appear to be grossly normal. ECHOCARDIOGRAM REPORT [id number] PAPA SANDOVAL IMPRESSION: The patient has slightly improved LV systolic function. There is no new wall motion abnormalities compared to previous echo. The patient has a mild ischemic cardiomyopathy. TRANSINT:[id number] Voice Confirmation ID: [id number] DOCUMENT ID: [id number] SHILPA SANTANA MD CC: [id number] DICTATION DATE: 01/11/21 1333 TRANSPORT AIDE: 01/11/212123 ADM [address] [place] [id number] [place] [address]
[~2021-01-10 01:59] MED LIST changes: +GLIPIZIDE10 MG PO; -GLUCOTROL 5 MG T5 MG PO; +IPRAT-ALBUT 0.5-3 ML UPD; +LASIX40 MG PO; +MUCINEX600 MG PO; +PULMICORT0.5 MG/21 UPD; +TESSALON PERLE100 MG PO
[2021-01-10 02:17] LABS: BASOPHILS 0.4 % (0-2); EOSINOPHILS 9.2 % (0-7); HEMATOCRIT 26.8 % (42.0-54.0); HEMOGLOBIN 8.7 g/dL (13.5-17.5); IMMATURE GRANULOCYTES 0.2 % (0-5); LYMPHOCYTE ABS# 0.92 10x3/uL (1.32-3.57); LYMPHOCYTES 16.3 % (15-50); MCH 31.3 pg (26.0-34.0); MCHC 32.5 g/dL (31.0-37.0); MCV 96.4 fL (80.0-100.0); MONOCYTES 12.2 % (2-11); NEUTROPHILS 61.7 % (40-80); PLATELET COUNT 161 10x3/uL (130-400); RBC 2.78 10x6/uL (4.20-6.10); RDW 14.7 % (11.5-14.5); WBC 5.7 10x3/uL (4.8-10.8)
[2021-01-10 02:25] LABS: CALC OSMOLALITY 289 mosm/kg (275-300); CALCIUM 8.5 mg/dL (8.5-10.1); CARBON DIOXIDE 22.4 mmol/L (21.0-32.0); CHLORIDE - SERUM 103 mmol/L (98-107); GLUCOSE 108 mg/dL (74-106); POTASSIUM - SERUM 4.7 mmol/L (3.5-5.1); SODIUM 136 mmol/L (136-145); UREA NITROGEN 59 mg/dL (7-18); eGFR NON AFRICAN AMERICAN 34 mL/min (90-120)
[2021-01-10 02:26] LABS: APTT 33.3 SECONDS (22.8-39.4); INR 1.31 (0.85-1.17); PROTIME 15.1 SECONDS (11.6-15.0)
[2021-01-10 02:46] LABS: ALBUMIN 3.2 g/dL (3.4-5.0); ALKALINE PHOSPHATASE 78 U/L (30-120); ALT (SGPT) 79 U/L (10-68); BILIRUBIN - TOTAL 1.26 mg/dL (0.2-1.3); CKMB 7.1 U/L (0.0-3.6); CREATINE KINASE 199 UL (21-232); PRO BNP 11612 pg/mL (0-450); PROTEIN - SERUM 6.9 g/dL (6.4-8.2); TROPONIN-I 9.256 ng/mL (0.000-0.060)
--- NOTE | 2021-01-10 03:55 | NUR ---
PT TO ROOM 2116 VIA STRETCHER ACCOMPANIED BY HOSPITAL STAFF.
[2021-01-10 10:09] LABS: CKMB 5.3 U/L (0.0-3.6); CREATINE KINASE 160 UL (21-232)
[2021-01-10 10:13] LABS: TROPONIN-I 7.217 ng/mL (0.000-0.060)
--- NOTE | 2021-01-10 14:40 | NUR ---
1ST UNIT PRBC STARTED. VS WNL. LINE IS PATENT. WILL MONITOR.
[2021-01-10 14:54] LABS: CKMB 4.8 U/L (0.0-3.6); CREATINE KINASE 161 UL (21-232)
[2021-01-10 22:57] LABS: CKMB 4.2 U/L (0.0-3.6); CREATINE KINASE 150 UL (21-232)
[2021-01-10 22:58] LABS: TROPONIN-I 5.008 ng/mL (0.000-0.060)
[2021-01-11 01:57] VITALS: BP 124/73
[2021-01-11 05:22] LABS: BASOPHILS 0.8 % (0-2); EOSINOPHILS 4.9 % (0-7); HEMATOCRIT 30.3 % (42.0-54.0); HEMOGLOBIN 10.1 g/dL (13.5-17.5); IMMATURE GRANULOCYTES 0.7 % (0-5); LYMPHOCYTE ABS# 0.71 10x3/uL (1.32-3.57); LYMPHOCYTES 11.6 % (15-50); MCH 30.4 pg (26.0-34.0); MCHC 33.3 g/dL (31.0-37.0); MCV 91.3 fL (80.0-100.0); MEAN PLATELET VOLUME 10.2 fL (7.4-10.4); MONOCYTES 12.1 % (2-11); NEUTROPHIL ABS# 4.28 10x3/uL (1.78-5.38); NEUTROPHILS 69.9 % (40-80); PLATELET COUNT 147 10x3/uL (130-400); RBC 3.32 10x6/uL (4.20-6.10); RDW 18.9 % (11.5-14.5); WBC 6.1 10x3/uL (4.8-10.8)
[2021-01-11 05:44] LABS: ANION GAP 14.6 mmol/L (8-16); BILIRUBIN - TOTAL 3.23 mg/dL (0.2-1.3); CALCIUM 8.6 mg/dL (8.5-10.1); CARBON DIOXIDE 22.8 mmol/L (21.0-32.0); MAGNESIUM - SERUM 2.5 mg/dL (1.8-2.4); PHOSPHOROUS 4.6 mg/dL (2.5-4.9); POTASSIUM - SERUM 4.4 mmol/L (3.5-5.1); PROTEIN - SERUM 6.7 g/dL (6.4-8.2)
--- NOTE | 2021-01-11 06:02 | NUR ---
NO ISSUES VOICED DURING THE NIGHT. PT TOLERATED BOTH UNITS OF BLOOD WITHOUT DIFFICULTY. DENIES INCREASED SOB OR CP. CL IN REACH. WILL CTM
[2021-01-11 06:14] VITALS: BP 133/61
[2021-01-11 08:17] VITALS: BP 156/74
[2021-01-11 15:30] VITALS: BP 88/52
--- NOTE | 2021-01-11 15:38 | MORECARE ---
CASE MANAGEMENT DISCHARGE SUMMARY PATIENT: PAPA SANDOVAL UNIT: [id number] ADM DATE: 01/10/21 AGE: 85 : 36 SEX: M ROOM/BED: D.[facility]6 AUTHOR: JUNO,DOC PHYSICIAN: REFERRING PHYSICIAN: SHIRA PRITCHARD MD DATE OF SERVICE: 01/11/21 Case Management Discharge Planning Summary CT Patient Name: PAPA SANDOVAL Attending MD : DANDY PRITCHARD, Medical Record: [id number] Encounter : [id number] Facility : [address] [place] [address] Admission Date : 01/10/2021 3:17 Center Discharge Date : [address] [place] [address] Date of : DC Plan ID : [id number] Age/Sex/Martia : 85/ M/M Printed on : 01/11/21 15:37 CT DCP Review Details Anticipated D/C: Expected LOS : Case Status : INITIATED - Initial Reviewe: [id number] Sherri Carrera Initial Review: 01/10/2021 Planned Disposi: 01 - Home or Self Care (Routine Discharge) Final Discharge: - Final Reviewer : : Final Review : DCP Focus Questions & Answers [facility] PAPA SANDOVAL MR#: [id number] /Age/Sex/Blrxdu5-Iks-30 /85/M /M Attending Physician Name: Karen [id number] Patient Account:[id number] [facility] Page -1 of 1 All edits/amendments must be made on the electronic document DICTATION DATE: 01/11/21 153 SHOPPER MARKETING MANAGER: DM 01/11/21 153 RPT#: [id number] DC DATE: STATUS: ADM IN [facility] [address] [place] [address] END OF REPORT
--- NOTE | 2021-01-11 16:22 | MORECARE ---
CASE MANAGEMENT DISCHARGE SUMMARY PATIENT: PAPA SANDOVAL UNIT: [id number] ADM DATE: 01/10/21 AGE: 85 : 36 SEX: M ROOM/BED: D.2116 AUTHOR: JUNO,DOC PHYSICIAN: REFERRING PHYSICIAN: SHIRA PRITCHARD MD DATE OF SERVICE: 01/11/21 Case Management Discharge Planning Summary CT Patient Name: PAPA SANDOVAL Attending MD : DANDY PRITCHARD, Medical Record: [id number] Encounter : [id number] Facility : [address] [place] [address] Admission Date : 01/10/2021 3:17 Center Discharge Date : [address] [place] [address] Date of : DC Plan ID : [id number] Age/Sex/Martia : 85/ M/M Printed on : 01/11/21 16:21 CT DCP Review Details Anticipated D/C: Expected LOS : Case Status : INITIATED - Initial Reviewe: [id number] - Valdo Carrera Initial Review: 01/10/2021 Planned Disposi: 01 - Home or Self Care (Routine Discharge) Final Discharge: - Final Reviewer : : Final Review : Comments CT Entered Date Type Reviewer 01/11/21 15:47 CT Discharge Planning Valdo Carrera Comment CM met with patient to complete DC plan and to evaluate needs. Patient lives independently with his Spouse, Iva ([phone]). At discharge, the patient plans to return home and feels this is a safe discharge. Patient stated that his primary physician is Dr. Peacock and he fills his medications at [facility]. CM discussed availability of home health, rehab services, and medical equipment. Patient declined HHS, SNF, IPR, and DME. Patient voiced no other needs at this time and is satisfied with DC plan. Transportation provider at discharge will be with his spouse, Iva. DC IMM delivered, explained, signed by the patient, and placed in chart. Signed form also left with the patient. CM will continue to follow and will assist as needed with dc plans/needs. DCP Focus Questions & Answers DCP Evaluation Patient and/or caregiver agree upon recommended Yes discharge plan? Patient's current cognitive status: *Oriented to person, place, situation, time and present Patient's ability to cope with chronic illness d. No chronic illness Patient gives permission to discuss discharge IVA SANDOVAL plans with: (name, relationship and number) Does the patient have the ability to pay for or Yes attain post discharge needs / services? Functional screen assessment: No issues identified Functional screen assessment: Basic needs can adequately be met by self Physical Status: Independent with ADL's Equipment needed for post hospitalization: None Is there a likelihood that the patient will No require additional services to return to the preadmission environment? Living Arrangements: Home with Spouse/Significant Other Patient with capacity for self-care or can be Yes cared for in same environment as prior to hospitalization? Baseline cognitive status: *Oriented to person, place, situation, time and present Physical environment modification needed / No anticipated for discharge: Medication Management: Patient states can read and understand medication labels Medication Management: Patient states can afford medications Pharmacy name(s): [facility] Does Patient have transportation to get home and Yes to follow-up medical appointments when discharged from the hospital? Would patient like to participate in any Care Not applicable Coordination programs (if applicable): Does the patient have electricity at home? Yes Does the patient have running water in their Yes house? Equipment in use: None Mental health screen: No mental health history DCP Re-evaluation Would patient like to participate in any Care Not applicable Coordination programs (if applicable): [facility] PAPA SANDOVAL MR#: [id number] /Age/Sex/Lfiwkp1-Hxw-95 /85/M /M Attending Physician Name: Karen [id number] Patient Account:[id number] [facility] Page -1 of 1 All edits/amendments must be made on the electronic document DICTATION DATE: 01/11/211620 PRICE ANALYST: ROYAL 01/11/211620 RPT#: [id number] DC DATE: STATUS: ADM IN [facility] [address] [place] [address] END OF REPORT
[2021-01-11 19:00] VITALS: BP 128/67
[2021-01-12] VITALS: BP 117/55
[2021-01-12 04:00] VITALS: BP 122/53
[2021-01-12 05:22] LABS: BASOPHILS 0.7 % (0-2); EOSINOPHILS 6.8 % (0-7); HEMOGLOBIN 9.9 g/dL (13.5-17.5); IMMATURE GRANULOCYTES 0.3 % (0-5); LYMPHOCYTE ABS# 0.81 10x3/uL (1.32-3.57); LYMPHOCYTES 11.9 % (15-50); MCH 29.7 pg (26.0-34.0); MCHC 31.9 g/dL (31.0-37.0); MCV 93.1 fL (80.0-100.0); MONOCYTES 13.4 % (2-11); NEUTROPHIL ABS# 4.55 10x3/uL (1.78-5.38); NEUTROPHILS 66.9 % (40-80); PLATELET COUNT 162 10x3/uL (130-400); RBC 3.33 10x6/uL (4.20-6.10); RDW 18.1 % (11.5-14.5); WBC 6.8 10x3/uL (4.8-10.8)
[2021-01-12 05:46] LABS: ANION GAP 14.7 mmol/L (8-16); BILIRUBIN - TOTAL 1.67 mg/dL (0.2-1.3); CALCIUM 8.7 mg/dL (8.5-10.1); CARBON DIOXIDE 22.7 mmol/L (21.0-32.0); CREATININE - SERUM 1.8 mg/dL (0.6-1.3); MAGNESIUM - SERUM 2.3 mg/dL (1.8-2.4); POTASSIUM - SERUM 4.4 mmol/L (3.5-5.1); PROTEIN - SERUM 6.1 g/dL (6.4-8.2)
[2021-01-12 07:00] VITALS: BP 126/63
[2021-01-12] MEDS ORDERED: COREG 3.1253.125 MG PO (10:34)
[2021-01-12 11:00] VITALS: BP 124/66
--- NOTE | 2021-01-12 11:51 | MORECARE ---
CASE MANAGEMENT DISCHARGE SUMMARY PATIENT: PAPA SANDOVAL UNIT: [id number] ADM DATE: 01/10/21 AGE: 85 : 36 SEX: M ROOM/BED: D.2116 AUTHOR: JUNO,DOC PHYSICIAN: REFERRING PHYSICIAN: SHIRA PRITCHARD MD DATE OF SERVICE: 01/12/21 Case Management Discharge Planning Summary CT Patient Name: PAPA SANDOVAL Attending MD : DANDY PRITCHARD, Medical Record: [id number] Encounter : [id number] Facility : [address] [place] [address] Admission Date : 01/10/2021 3:17 Center Discharge Date : [address] [place] [address] Date of : DC Plan ID : [id number] Age/Sex/Martia : 85/ M/M Printed on : 01/12/21 11:50 CT DCP Review Details Anticipated D/C: Expected LOS : Case Status : INITIATED - Initial Reviewe: [id number] - Valdo Carrera Initial Review: 01/10/2021 Planned Disposi: 01 - Home or Self Care (Routine Discharge) Final Discharge: - Final Reviewer : : Final Review : Comments CT Entered Date Type Reviewer 01/12/21 11:44 CT Discharge Planning Edel Zhang Comment Patient has home oxygen, no needs from case management. Home today. 01/11/21 15:47 CT Discharge Planning Valdo Carrera Comment CM met with patient to complete DC plan and to evaluate needs. Patient lives independently with his Spouse, Iva ([phone]). At discharge, the patient plans to return home and feels this is a safe discharge. Patient stated that his primary physician is Dr. Peacock and he fills his medications at [facility]. CM discussed availability of home health, rehab services, and medical equipment. Patient declined HHS, SNF, IPR, and DME. Patient voiced no other needs at this time and is satisfied with DC plan. Transportation provider at discharge will be with his spouse, Iva. DC IMM delivered, explained, signed by the patient, and placed in chart. Signed form also left with the patient. CM will continue to follow and will assist as needed with dc plans/needs. DCP Focus Questions & Answers DCP Evaluation Patient and/or caregiver agree upon recommended Yes discharge plan? Patient's current cognitive status: *Oriented to person, place, situation, time and present Patient's ability to cope with chronic illness d. No chronic illness Patient gives permission to discuss discharge IVA SANDOVAL, plans with: (name, relationship and number) Does the patient have the ability to pay for or Yes attain post discharge needs / services? Functional screen assessment: No issues identified Functional screen assessment: Basic needs can adequately be met by self Physical Status: Independent with ADL's Equipment needed for post hospitalization: None Is there a likelihood that the patient will No require additional services to return to the preadmission environment? Living Arrangements: Home with Spouse/Significant Other Patient with capacity for self-care or can be Yes cared for in same environment as prior to hospitalization? Baseline cognitive status: *Oriented to person, place, situation, time and present Physical environment modification needed / No anticipated for discharge: Medication Management: Patient states can read and understand medication labels Medication Management: Patient states can afford medications Pharmacy name(s): [facility] Does Patient have transportation to get home and Yes to follow-up medical appointments when discharged from the hospital? Would patient like to participate in any Care Not applicable Coordination programs (if applicable): Does the patient have electricity at home? Yes Does the patient have running water in their Yes house? Equipment in use: None Mental health screen: No mental health history DCP Re-evaluation Would patient like to participate in any Care Not applicable Coordination programs (if applicable): [facility] PAPA SANDOVAL MR#: [id number] /Age/Sex/Ozmeyh6-Wox-55 /85/M /M Attending Physician Name: Karen [id number] Patient Account:[id number] [facility] Page -1 of 1 All edits/amendments must be made on the electronic document DICTATION DATE: 01/12/21 115 ACTUARIAL TRAINEE: ROYAL 01/12/21 115 RPT#: [id number] DC DATE: STATUS: ADM IN [facility] [address] [place] [address] END OF REPORT
--- NOTE | 2021-01-12 11:56 | NUR ---
PT'S DISCHARGE INSTRUCTIONS REVIEWED AND SIGNED. IV OUT AND TELEMETRY REMOVED. SCRIPT ESCRIBED TO [facility].
--- NOTE | 2021-01-12 12:39 | MORECARE ---
CASE MANAGEMENT DISCHARGE SUMMARY PATIENT: PAPA SANDOVAL UNIT: [id number] ADM DATE: 01/10/21 AGE: 85 : 36 SEX: M ROOM/BED: D.2116 AUTHOR: JUNO,DOC PHYSICIAN: REFERRING PHYSICIAN: SHIRA PRITCHARD MD DATE OF SERVICE: 01/12/21 Case Management Discharge Planning Summary CT Patient Name: PAPA SANDOVAL Attending MD : DANDY PRITCHARD, Medical Record: [id number] Encounter : [id number] Facility : [address] [place] [address] Admission Date : 01/10/2021 3:17 Center Discharge Date : 01/12/[address] [place] [address] Date of : DC Plan ID : [id number] Age/Sex/Martia : 85/ M/M Printed on : 01/12/21 12:38 CT DCP Review Details Anticipated D/C: Expected LOS : Case Status : INITIATED - Initial Reviewe: [id number] - Valdo Carrera Initial Review: 01/10/2021 Planned Disposi: 01 - Home or Self Care (Routine Discharge) Final Discharge: - Final Reviewer : : Final Review : Comments CT Entered Date Type Reviewer 01/12/21 11:44 CT Discharge Planning Edel Zhang Comment Patient has home oxygen, no needs from case management. Home today. 01/11/21 15:47 CT Discharge Planning Valdo Carrera Comment CM met with patient to complete DC plan and to evaluate needs. Patient lives independently with his Spouse, Iva ([phone]). At discharge, the patient plans to return home and feels this is a safe discharge. Patient stated that his primary physician is Dr. Peacock and he fills his medications at [facility]. CM discussed availability of home health, rehab services, and medical equipment. Patient declined HHS, SNF, IPR, and DME. Patient voiced no other needs at this time and is satisfied with DC plan. Transportation provider at discharge will be with his spouse, Iva. DC IMM delivered, explained, signed by the patient, and placed in chart. Signed form also left with the patient. CM will continue to follow and will assist as needed with dc plans/needs. DCP Focus Questions & Answers DCP Evaluation Patient and/or caregiver agree upon recommended Yes discharge plan? Patient's current cognitive status: *Oriented to person, place, situation, time and present Patient's ability to cope with chronic illness d. No chronic illness Patient gives permission to discuss discharge IVA SANDOVAL, plans with: (name, relationship and number) Does the patient have the ability to pay for or Yes attain post discharge needs / services? Functional screen assessment: No issues identified Functional screen assessment: Basic needs can adequately be met by self Physical Status: Independent with ADL's Equipment needed for post hospitalization: None Is there a likelihood that the patient will No require additional services to return to the preadmission environment? Living Arrangements: Home with Spouse/Significant Other Patient with capacity for self-care or can be Yes cared for in same environment as prior to hospitalization? Baseline cognitive status: *Oriented to person, place, situation, time and present Physical environment modification needed / No anticipated for discharge: Medication Management: Patient states can read and understand medication labels Medication Management: Patient states can afford medications Pharmacy name(s): [facility] Does Patient have transportation to get home and Yes to follow-up medical appointments when discharged from the hospital? Would patient like to participate in any Care Not applicable Coordination programs (if applicable): Does the patient have electricity at home? Yes Does the patient have running water in their Yes house? Equipment in use: None Mental health screen: No mental health history DCP Re-evaluation Would patient like to participate in any Care Not applicable Coordination programs (if applicable): [facility] PAPA SANDOVAL MR#: [id number] /Age/Sex/Tflizt6-Jbk-18 /85/M /M Attending Physician Name: Karen [id number] Patient Account:[id number] [facility] Page -1 of 1 All edits/amendments must be made on the electronic document DICTATION DATE: 01/12/21 1238 FIELD REVIEWER: ROYAL 01/12/218 RPT#: [id number] DC DATE:01/12/21 STATUS: DIS IN [facility] [address] [place] [address] END OF REPORT
--- NOTE | 2021-01-12 16:52 | MORECARE ---
CASE MANAGEMENT DISCHARGE SUMMARY PATIENT: PAPA SANDOVAL UNIT: [id number] ADM DATE: 01/10/21 AGE: 85 : 36 SEX: M ROOM/BED: D.2116 AUTHOR: JUNO,DOC PHYSICIAN: REFERRING PHYSICIAN: SHIRA PRITCHARD MD DATE OF SERVICE: 01/12/21 Case Management Discharge Planning Summary CT Patient Name: PAPA SANDOVAL Attending MD : DANDY PRITCHARD, Medical Record: [id number] Encounter : [id number] Facility : [address] [place] [address] Admission Date : 01/10/2021 3:17 Center Discharge Date : 01/12/[address] [place] [address] Date of : DC Plan ID : [id number] Age/Sex/Martia : 85/ M/M Printed on : 01/12/21 16:50 CT DCP Review Details Anticipated D/C: Expected LOS : Case Status : INITIATED - Initial Reviewe: [id number] - Valdo Carrera Initial Review: 01/10/2021 Planned Disposi: 01 - Home or Self Care (Routine Discharge) Final Discharge: - Final Reviewer : : Final Review : Comments CT Entered Date Type Reviewer 01/12/21 11:44 CT Discharge Planning Edel Zhang Comment Patient has home oxygen, no needs from case management. Home today. 01/11/21 15:47 CT Discharge Planning Valdo Carrera Comment CM met with patient to complete DC plan and to evaluate needs. Patient lives independently with his Spouse, Iva ([phone]). At discharge, the patient plans to return home and feels this is a safe discharge. Patient stated that his primary physician is Dr. Peacock and he fills his medications at [facility]. CM discussed availability of home health, rehab services, and medical equipment. Patient declined HHS, SNF, IPR, and DME. Patient voiced no other needs at this time and is satisfied with DC plan. Transportation provider at discharge will be with his spouse, Iva. DC IMM delivered, explained, signed by the patient, and placed in chart. Signed form also left with the patient. CM will continue to follow and will assist as needed with dc plans/needs. DCP Focus Questions & Answers DCP Evaluation Patient and/or caregiver agree upon recommended Yes discharge plan? Patient's current cognitive status: *Oriented to person, place, situation, time and present Patient's ability to cope with chronic illness d. No chronic illness Patient gives permission to discuss discharge IVA SANDOVAL, plans with: (name, relationship and number) Does the patient have the ability to pay for or Yes attain post discharge needs / services? Functional screen assessment: No issues identified Functional screen assessment: Basic needs can adequately be met by self Physical Status: Independent with ADL's Equipment needed for post hospitalization: None Is there a likelihood that the patient will No require additional services to return to the preadmission environment? Living Arrangements: Home with Spouse/Significant Other Patient with capacity for self-care or can be Yes cared for in same environment as prior to hospitalization? Baseline cognitive status: *Oriented to person, place, situation, time and present Physical environment modification needed / No anticipated for discharge: Medication Management: Patient states can read and understand medication labels Medication Management: Patient states can afford medications Pharmacy name(s): [facility] Does Patient have transportation to get home and Yes to follow-up medical appointments when discharged from the hospital? Would patient like to participate in any Care Not applicable Coordination programs (if applicable): Does the patient have electricity at home? Yes Does the patient have running water in their Yes house? Equipment in use: None Mental health screen: No mental health history DCP Re-evaluation Would patient like to participate in any Care Not applicable Coordination programs (if applicable): [facility] PAPA SANDOVAL MR#: [id number] /Age/Sex/Psqcdh4-Rhb-39 /85/M /M Attending Physician Name: MACHO [id number] Patient Account:[id number] [facility] Page -1 of 1 All edits/amendments must be made on the electronic document DICTATION DATE: 01/12/211649 COMPATIBILITY TEST ENGINEER: ROYAL 01/12/211649 RPT#: [id number] DC DATE:01/12/21 STATUS: DIS IN [facility] [address] [place] [address] END OF REPORT
== END 2021-01-12 12:04 | disposition home or self-care (01) | DRG 280 ==
LOC: D.ER 01:59 → D.M2 03:17
PROVIDERS: Family Medicine; ADMIT Family Medicine; ATTEND Family Medicine
DX: I13.0 Hypertensive heart and chronic kidney disease with heart failure and stage 1 through stage 4 chronic kidney disease, or unspecified chronic kidney disease (principal); I22.2 Subsequent non-ST elevation (NSTEMI) myocardial infarction; I50.23 Acute on chronic systolic (congestive) heart failure; I21.4 Non-ST elevation (NSTEMI) myocardial infarction; E03.9 Hypothyroidism, unspecified; I25.10 Atherosclerotic heart disease of native coronary artery without angina pectoris; E78.5 Hyperlipidemia, unspecified; N18.30 Chronic kidney disease, stage 3 unspecified; E11.22 Type 2 diabetes mellitus with diabetic chronic kidney disease; E11.51 Type 2 diabetes mellitus with diabetic peripheral angiopathy without gangrene; I25.5 Ischemic cardiomyopathy; D63.1 Anemia in chronic kidney disease; E86.0 Dehydration

== ENCOUNTER 2021-03-03 10:53 | Day surgery (SDC) | payer MEDICARE, BC ==
[~2021-03-03] VITALS: Ht 175.3 cm; Wt 81.3 kg
--- NOTE | ~2021-03-03 | HEMODYNAMI ---
PATIENT:PAPA SANDOVAL MEDICAL RECORD: [id number] : 37 LOCATION:DEmyCAT ADMISSION DATE: 03/03/21 Generatedon:113:28 Patient name: PAPA SANDOVAL Patient #: [id number] SSN: [id number] : 1935 Date of study: 03/03/2021 Page: Of Hemodynamic Procedure Report Patient Data Patient Demographics Procedure consent was obtained First Name: PAPA Gender: Male Last Name: LORI : 1935 [facility] Initial: C Age: 85 year(s) Patient #: [id number] Race: SSN: [id number] Additional ID: [id number] Contact details [address]: [address] [place] [address] [place] State: [place] City: [place] Zip code: [address] Admission Admission Data Admission Date: 03/03/2021 Admission Time: 10:53 Arrival Date: 03/03/2021 Arrival Time: 13:00 Admit Source: Other Insurance Payor: Medicare HIC #: [id number] Height (in.): 68.9 BSA: 1.97 (m2) Height (cm.): 175 BMI: 26.45 (kg/m2) Weight (lbs.): 178.58 Weight (kg.): 81 Lab Results Lab Result Date: 03/03/2021 Lab Result Time: 0:00 Biochemistry Name Units Result Min Max BUN mg/dl 37 --(----)-* 7 18 Creatinine mg/dl 1.5 --(----)-* 0.6 1.3 CBC Name Units Result Min Max Hemoglobin g/dl 12.5 *-(----)-- 13.5 17.5 Procedure Procedure Types Cath Procedure Diagnostic Procedure PPM/ICD PPM Dual Implant Sedation Charges Moderate Sedation 25-39 minutes Procedure Description Procedure Date Procedure Date: 03/03/2021 Procedure Start Time: 12:57 Procedure End Time: 13:22 Procedure Staff Name Function Samuel Jean-Baptiste MD Performing Physician Caden Bolton MD Assisting physician Luisa Mims RT Monitor Ramona Chavez RT Scrub Richie Albert RN Nurse Procedure Data Cath Procedure Fluoroscopy Diagnostic fluoroscopy Total fluoroscopy Time: 2.8 time: 2.8 min min Diagnostic fluoroscopy Total fluoroscopy dose: dose: 114.56 mGy 114.56 mGy Contrast Material Contrast Material Type Amount (ml) Isovue 300 0 Estimated blood loss: 5 ml Procedure Complications No complications Procedure Medications Medication Administration Route Dosage 0.9% NaCl I.V. 25 ml/hr Ancef (1Gm/50ml NS) I.V.P.B 1 g Ancef Irrigation Topical 1 g (1gm/500ml NS) Lidocaine 1% added to field 20 Oxygen etCO2 Nasal cannula 2 l/min Fentanyl I.V. 50 mcg Versed I.V. 1 mg Versed I.V. 1 mg Fentanyl I.V. 50 mcg Versed I.V. 0.5 mg Fentanyl I.V. 25 mcg Hemodynamics Rest BSA: 1.97 (m2) HGB: 12.5 (g/dl) O2 Consumption: Estimated: 210.03 (ml/min) O2 Co nsumption indexed: Estimated:106.61 (ml/min/m) Heart Rate: 51 (bpm) Snapshots Pre Cath Intra NCS Post Cath Vital Signs Time Heart Resp SPO2 NIBP (mmHg) Rhythm Pain Sedation Rate (ipm) (%) Status Level (bpm) 12:46:57 42 11 98 141/67(118) SB 0 (11) 10(A) , No pain 12:51:13 40 12 98 121/62(91) SB 0 (11) 10(A) , No pain 12:55:23 46 12 99 126/61(101) SB 0 (11) 9(A) , No pain 12:59:34 40 10 98 111/56(86) SB 0 (11) 9(A) , No pain 13:03:42 35 10 91 110/55(73) SB 0 (11) 9(A) , No pain 13:07:46 85 10 90 91/61(70) SB 0 (11) 9(A) , No pain 13:11:43 34 10 90 104/60(83) SB 0 (11) 9(A) , No pain 13:15:43 88 10 90 102/67(83) Paced 0 (11) 9(A) , No pain 13:19:45 69 10 90 115/63(83) Paced 0 (11) 10(A) , No pain Medications Time Medication Route Dose Verified Delivered Reason Notes Effectiv eness by by 12:32:12 0.9% NaCl I.V. 25 Samuel Richie used for ml/hr Jerilyn Roosevelt sales negotiator 12:32:42 Ancef I.V.P.B 1 g Samuel Richie used for (1Gm/50ml Jerilyn Roosevelt sales negotiator NS) 12:32:52 Ancef Topical 1 g Samuel Samuel used for Irrigation [facility] procedure (1gm/500ml MD LOZADA NS) 12:33:07 Lidocaine added 20ml Samuel Negrete for local 1% to vial St Calos Bolton MD anesthetic field x2 12:33:29 Oxygen etCO2 2 Samuel Richie used for Nasal l/min Jerilyn Roosevelt sales negotiator cannula 12:49:20 Fentanyl I.V. 50 Samuel Richie for mcg Jerilyn Roosevelt RN sedation 12:49:30 Versed I.V. 1 mg Samuel Richie for Jerilyn Roosevelt RN sedation 12:54:40 Versed I.V. 1 mg Samuel Richie for Jerilyn Roosevelt RN sedation 12:54:43 Fentanyl I.V. 50 Samuel Richie for mcg Jerilyn Roosevelt RN sedation 13:01:07 Versed I.V. 0.5 Samuel Richie for mg Jerilyn Roosevelt RN sedation 13:01:10 Fentanyl I.V. 25 [facility] Procedure Log Time Note 12:30:15 Informed consent obtained and on chart 12:30:19 Diagnostic Cath Status : Elective 12:32:12 0.9% NaCl 25 ml/hr I.V. was administered by Richie Albert RN; used for procedure; Verbal order read back and verified. 12:32:42 Ancef (1Gm/50ml NS) 1 g I.V.P.B was administered by Richie Albert RN; used for procedure; Verbal order read back and verified. 12:32:52 Ancef Irrigation (1gm/500ml NS) 1 g Topical was administered by Samuel Jean-Baptiste MD; used for procedure; Verbal order read back and verified. 12:33:07 Lidocaine 1% 20ml vial x2 added to field was administered by Caden Bolton MD; for local anesthetic; Verbal order read back and verified. 12:33:29 Oxygen 2 l/min etCO2 Nasal cannula was administered by Richie Albert RN; used for procedure; Verbal order read back and verified. 12:33:43 Admit Source: Other 12:33:47 Insurance Payor : Medicare 12:33:52 Arrival Date: 03/03/2021 1:00:00 PM 12:34:16 Patient Height : 68.9 inches 12:34:19 Patient Weight : 178.58 lbs 12:34:43 Lab Result : Hemoglobin 12.5 g/dl 12::43 Lab Result : Creatinine 1.5 mg/dl 12::43 Lab Result : BUN 37 mg/dl 12:34:50 Procedure Status PPM/ Gen Change/ Lead Revision/ Temp. 12:34:54 Richie Albert RN sent for patient. Start room use. 12:34:54 Time tracking: Regular hours (M-F 7:00 - 5:00) 12:34:59 Plan of Care:Hemodynamics will remain stable., Cardiac rhythm will remain stable., Comfort level will be maintained., Respiratory function will remain adequate., Patient/ family verbilizes understanding of procedure., Procedure tolerated without complication., Recovers from procedure without complications.. 12:41:45 Patient received from Pre/Post Procedure Room to [facility] 3 Alert and oriented. Tansferred to table in Supine position. 12:41:45 Warm blankets applied, and ryan hugger turned on for patient comfort. 12:41:46 Correct patient and procedure confirmed by team. 12:41:46 ECG and BP/O2 sat monitors applied to patient. 12:45:43 Vital chart was started 12:45:45 Baseline sample Acquired. 12:46:31 Rhythm: sinus bradycardia 12:46:32 Full Disclosure recording started 12:46:35 H&P Date Dictated: 03/03/2021 Within 30 days and on chart., H&P Addendum completed by physician on day of procedure. (MUST COMPLETE FOR ALL OUTPATIENTS). 12:46:37 Pre-procedure instructions explained to patient. 12:46:37 Pre-op teaching completed and patient verbalized understanding. 12:46:39 Patient NPO since Midnight. 12:46:41 Family in patients room. 12:46:43 Is the patient allergic to Iodine/contrast media? No. 12:46:44 Was the patient premedicated? No 12:46:45 Is patient on blood thinner?Yes 12:46:46 Patient diabetic? Yes. 12:46:48 If diabetic: On Metformin? No 12:46:50 Previous problem with sedation/anesthesia? No ? 12:46:53 Snore? Yes 12:46:54 Sleep apnea? No 12:46:56 Deviated septum? No 12:46:57 Opens mouth fully? Yes 12:46:57 Sticks out tongue? Yes 12:46:59 Airway obstruction? No ? 12:47:02 Dentures? No ? 12:47:05 Pre procedure: right dorsailis pedis pulse 2+ Normal; easily identifiable; not easily obliterated 12:47:25 ACC The patient was administered the following blood thiners within the last 24 hours: ACCPlavix 12:47:33 IV patent on arrival in right forearm with 0.9% NaCl at [facility]. 12:47:35 Lab results completed and on chart. 12:47:39 Left chest area was prepped with chlora-prep and draped in sterile fashion 12:47:40 Alarms reviewed by R. N. 12:47:40 Sharps counted by scrub and verified by R.N. 12:47:42 Physician arrived 12:47:42 --------ALL STOP TIME OUT------ 12:47:42 Final Timeout: patient, procedure, and site verified with staff and physician. All members of the team are in agreement. 12:47:44 Left chest site verified by team. 12:47:54 Fire Safety Assessment: A--An alcohol-based skin anteseptic being used preoperatively., C--Open oxygen or nitrous oxide is being used., E--There are other possible contributors. 12:47:58 Physical assessment completed. ASA score P 2 - A patient with mild systemic disease as per Samuel Jean-Baptiste MD. 12:48:02 Sedation plan: IV Moderate Sedation Medication:Versed, Fentanyl 12:48:08 Use device set DELPHINE PPM 12:48:09 2-0 Ticron Multipack ([id number]) opened to sterile field. 12:48:09 3-0 Vicryl Single Pack [id number] opened to sterile field. 12:48:10 5-0 Monocryl PS2 [id number] opened to sterile field. 12:48:10 Cautery Tip Instructional Specialist opened to sterile field. 12:48:11 Cautery Pushbutton Pencil opened to sterile field. 12:48:11 Mepilex Dressing (162295) opened to sterile field. 12:48:14 Immobilizer Large opened to sterile field. 12:48:30 Medtronic sales solutions representative Martínez Gama present for procedure. 12:48:39 Pre sharps counted by scrub and verified by RN: Sutures: 7; Sponges: 5; Stick needles: 2; Skin needles: 2; Blade: 1; Cautery: 1 12:48:43 Grounding pad site Left thigh. 12:48:44 Grounding pad site free from injury. 12:49:20 Fentanyl 50 mcg I.V. was administered by Richie Albert RN; for sedation; Verbal order read back and verified. 12:49:30 Versed 1 mg I.V. was administered by Richie Albert RN; for sedation; Verbal order read back and verified. 12:54:[address] Generator [id number] opened to sterile field. 12:54:40 Versed 1 mg I.V. was administered by Richie Albert RN; for sedation; Verbal order read back and verified. 12:54:43 Fentanyl 50 mcg I.V. was administered by Richie Albert RN; for sedation; Verbal order read back and verified. 12:54:57 Medtronic 4074-52 PPM Lead opened to sterile field. 12:55:22 Medtronic 4574-45 PPM Lead opened to sterile field. 12:56:55 Procedure started. 12:57:14 Lidocaine 1% was administered to left subclavicular area by Caden Bolton MD . 12:58:00 Incision made to left subclavicular area. 13:01:07 Versed 0.5 mg I.V. was administered by Richie Albert RN; for sedation; Verbal order read back and verified. 13:01:10 Fentanyl 25 mcg I.V. was administered by Richie Albert RN; for sedation; Verbal order read back and verified. 13:02:11 Generator pocket made/opened. 13:02:14 Left subclavian vein accessed with 7Fr Peel Away Sheath. 13:03:28 Left subclavian vein accessed with 7Fr Peel Away Sheath. 13:03:32 Ventricular lead inserted and advanced. 13:03:35 Atrial lead inserted and advanced. 13:07:57 Ventricular lead positioned. 13:09:12 Atrial lead positioned. 13:11:40 Peel-a-way sheath was split and removed. 13:11:40 Peel-a-way sheath was split and removed. 13:11:48 Ventricular lead attachment was completed with 2-0 ticron. 13:11:52 Atrial lead attachment was completed with 2-0 ticron. 13:12:37 PPM Dual was attached to lead(s) and inserted into pocket. 13:13:37 Generator was sutured in place with 2-0 ticron. 13:13:57 Device pocket was irrigated with Ancef. 13:15:37 Subcutaneous closure was completed with 3-0 vicryl plus. 13:19:21 Skin closure was completed with 5-0 monocryl. 13:20:21 Lt Chest incision was dressed with Mepilex dressing. 13:20:43 Procedure ended.(Physican Out) 13:21:30 Fluoroscopy time 02.80 minutes. 13:21:37 Fluoroscopy dose: 114.56 mGy 13:21:37 Flurop Dose total: 114.56 13:21:45 Dose Area Product 1239.11 mGy/cm. 13:21:48 Contrast amount:Isovue 300 0ml. 13:21:50 Sharps counted by scrub and verified by R.N. 13:21:51 Insertion/operative site no bleeding no hematoma. 13:21:53 Post Procedure Pulses reassessed and unchanged 13:21:56 Post procedure rhythm: paced 13:21:58 Estimated blood loss: 5 ml 13:22:01 Post procedure instruction explained to patient.Patient verbalizes understanding. 13:22:03 Patient needs reinforcement of post procedure teaching. 13:22:33 Procedure type changed to Cath procedure, Diagnostic procedure, PPM/ICD, PPM Dual Implant, Sedation Charges, Moderate Sedation 25-39 minutes 13:22:34 Procedure and supply charges have been captured, reviewed, submitted and are correct. 13:22:39 Procedure Complication : No complications 13:22:41 Vital chart was stopped 13::44 Operative report dictated upon procedure completion. 13:22:44 See physician's report for complete and final results. 13:22:48 Report given to Pre/Post Procedure Room. 13:22:51 Patient transfered to Pre/Post Procedure Room with Stretcher. 13:22:53 Procedure ended. 13:22:53 Full Disclosure recording stopped 13:22:57 End room use (Document Last) 13:23:17 Parameters-- Generator: Mode: DDDR. Lower Rate: 60bpm. Upper Rate: 120bpm. 13:23:32 Parameters--Ventricular P/R Wave: 7.5mV. Current: 0.5mA; Threshold: 0.6V; Impedence: 1406OHMS. 13:23:52 Parameters--Atrial P/R Wave: 1.6mV. Current: 0.9mA; Threshold: 0.5V; Impedence: 511OHMS. Device Usage Item Name Manufacture Quantity Catalog Hospital Part Current Minima l Lot# / Serial# Number Charge Number Stock Stock Code 2-0 Ticron Ethicon 9 [id number] 96400 008660 5 Multipack ([id number]) 3-0 Vicryl Ethicon 1 [id number] 180814 [id number] 5 Single Pack [id number] 5-0 Monocryl Ethicon 1 Y495G 789479 253304 684149 5 PS2 Y495G Cautery Tip Microtek 1 [id number] 934607 474956 [id number] 5 Instructional Specialist [employer] Cautery Microtek 1 [id number] 316066 26450 177327 5 Pushbutton [employer] Pencil Mepilex Cardinal 1 [id number] 661884 567612 396892 5 [facility] ([id number]) Immobilizer Cardinal 1 [id number] 423552 [id number] 436827 5 [facility] Medtronic Medtronic 1 [id number] 326367 [id number] 925884 5 [id number] EXP JHONNY XT 04-13-2022 Generator [id number] Medtronic Medtronic 1 4074-52 799037 173819 [id number] 5 [id number] EXP 4074-52 PPM 07-25-2022 Lead Medtronic Medtronic 1 4574-45 105198 132824 569618 5 [id number] 4574-45 PPM [id number] Lead Signature Audit [place] Stage Time Signature Unsigned Intra-Procedure 03/03/2021 Luisa Mims 1:24:35 PM RT(R) Intra-Procedure 03/03/2021 Richie Albert RN 1:25:39 PM Intra-Procedure 03/03/2021 Samuel Howe 1:28:37 PM Calos LOZADA [facility] [address] [place] [id number]
--- NOTE | ~2021-03-03 | OP ---
PATIENT NAME: PAPA SANDOVAL MEDICAL RECORD: [id number] :37 LOCATION:D.CAT ADMISSION DATE: SURGEON: MARSHA AKERS MD DATE OF OPERATION: 03/03/2021 PREOPERATIVE DIAGNOSIS: Third-degree heart block. POSTOPERATIVE DIAGNOSIS: Third-degree heart block. PROCEDURE: Left subclavian vein dual-lead pacemaker placement. SURGEON: Marsha Akers MD CO-SURGEON: Samuel Duque MD DESCRIPTION OF PROCEDURE: The patient's left chest was prepped and draped in sterile fashion. A total of 20 mL of 1% lidocaine with epinephrine was infused into the surrounding tissues. A transverse incision was made on the left superior lateral chest and a subcutaneous pouch was made over the pectoral fascia. [place] were used to cannulate the left subclavian vein. Guidewires were advanced with ease. Fluoroscopy was used to note that the wires were in good position in the venous system. Dilator trocar devices were placed over the wires and the wires and dilators were removed. The leads were advanced through the trocars until they rested in the superior vena cava. At this point, Dr. Duque, positioned the leads appropriately in the atrium and ventricle. Once the leads were in good position, they were sutured into place with 2-0 Ti-Cron. The leads were affixed to the pacemaker, which was placed into the subcutaneous pouch and sutured down to the pectoral fascia with single interrupted 2-0 Ti-Cron. We irrigated out the wound bed with antibiotic solution. The subcutaneous tissues were reapproximated with interrupted 3-0 Vicryl and the skin was closed with running subcutaneous 5-0 Monocryl. COMPLICATIONS: None. CONDITION: Stable. ANESTHESIA: Local MAC. BLOOD LOSS: Minimal. TRANSINT:[id number] Voice Confirmation ID: [id number] DOCUMENT ID: [id number] MARSHA AKERS MD CC: [id number] DICTATION DATE: 03/03/21 1320 CHIEF ULTRASOUND TECHNOLOGIST: 03/03/21 1552 [facility] [place] 03/03/21 [place] [id number]
--- NOTE | ~2021-03-03 | OP ---
PATIENT NAME: ANDERSON CUMMINGS MEDICAL RECORD: [id number] :37 LOCATION:D.CAT ADMISSION DATE: SURGEON: GEETA TAM MD DATE OF OPERATION: 03/03/2021 PROCEDURE: Lead portion of permanent pacemaker placement. INDICATION: Sick sinus syndrome with complete heart block. SURGEON: Dr. Bolton. After left subclavian was cannulated via modified Seldinger technique via Dr. Bolton first under fluoroscopic guidance, we placed RV lead in the RV apex without difficulty. DESCRIPTION OF PROCEDURE: After adequate R waves and thresholds were obtained, we then placed the right atrial lead in right atrial appendage without difficulty. After adequate P waves and threshold were obtained, the leads were attached to the appropriate poles of the generator and pocket was closed via Dr. Bolton. IMPRESSION: Successful lead portion of permanent pacemaker placement on Anderson Cummings. ESTIMATED BLOOD LOSS: Minimal. COMPLICATIONS: None. DISPOSITION: To the floor, stable. TRANSINT:[id number] Voice Confirmation ID: [id number] DOCUMENT ID: [id number] GEETA TAM MD CC: [id number] DICTATION DATE: 03/03/21 1312 DRAG OUT MAN: 03/03/21 1545 [facility] 03/03/21 [facility] [address] [place] [address]
[~2021-03-03 10:53] MED LIST changes: +COREG 3.1253.125 MG PO
[2021-03-03] MEDS ORDERED: GLIPIZIDE5 MG PO (11:08)
[2021-03-03] MEDS ORDERED: XALATAN 0.0052.5 ML EACH EYE (11:12)
[2021-03-03] MEDS ORDERED: OMEGA-3100 MG PO (11:12)
[2021-03-03 11:16] VITALS: BP 132/56; Ht 175.3 cm; Wt 81.3 kg
[2021-03-03 11:35] LABS: HEMATOCRIT 37.3 % (42.0-54.0); HEMOGLOBIN 12.5 g/dL (13.5-17.5); MCH 31.2 pg (26.0-34.0); MCHC 33.5 g/dL (31.0-37.0); MCV 93.1 fL (80.0-100.0); MEAN PLATELET VOLUME 7.9 fL (7.4-10.4); RBC 4.01 10x6/uL (4.20-6.10); RDW 16.5 % (11.5-14.5); WBC 5.4 10x3/uL (4.8-10.8)
[2021-03-03 11:47] LABS: ANION GAP 14.2 mmol/L (8-16); CALCIUM 8.9 mg/dL (8.5-10.1); CREATININE - SERUM 1.5 mg/dL (0.6-1.3); POTASSIUM - SERUM 4.2 mmol/L (3.5-5.1)
[2021-03-03 12:18] LABS: APTT 28.2 SECONDS (22.8-39.4); INR 1.18 (0.85-1.17); PROTIME 13.9 SECONDS (11.6-15.0)
--- NOTE | 2021-03-03 13:30 | NUR ---
ARRIVES TO ROOM 9 VIA STRETCHER S/P PPM. SEE BOAT OPERATOR. PT PLACED ON MONITORS AND ALARMS ON , LEFT MEPILEX IN PLACE AND LEFT SLING, PT DENIES PAIN OR NEEDS, DR TAM WAS IN ROOM PRIOR TO PT ARRIVAL TO SPEAK WITH SPOUSE REGARDING PT STATUS
--- NOTE | 2021-03-03 13:45 | NUR ---
PT RESTING QUIETLY DENIES PAIN OR NEEDS, PLACED IN SEMI FOWLERS POSITION, PLACED ON RA AND NC REMOVED SATS 96%, VSS, AV PACED PER MONITORS, LEFT ARM IN SLING AND MEPILEX LEFT CHEST C/D/I. PT DENIES PAIN OR NEEDS, IV INFUSING PER ORDERS, SPOUSE AT BEDSIDE, PT GIVEN PO FLUIDS AND SANDWICH BOX PER HIS REQUEST.
--- NOTE | 2021-03-03 14:00 | NUR ---
NO NEEDS, VSS, AV PACED PER MONITORS , LEFT CHEST WITH MEPILEX C/D/I. LEFT ARM SLING INPLACE MOVES ALL DIGITS EXTREMITY PINK AND WARM. DENIES PAIN , IV INFUSING PER ORDERS, DISCHARGE TEACHING STARTED WITH PT AND SPOUSE
--- NOTE | 2021-03-03 14:15 | NUR ---
VSS, PACED PER MONITORS, LEFT ARM IN SLING AND DRESSING TO LEFT CHEST C/D/I. DENIES PAIN OR NEEDS, CALL LIGHT WITHIN REACH
--- NOTE | 2021-03-03 14:30 | NUR ---
VSS, PACED PER MONITOR, LEFT CHEST DRESSING C/D/I LEFT SLING IN PLACE, 20G IV REMOOVED FROM LEFT AC CATHETER INTACT 2 X 2 DRESSING PLACED. DISCHARG INSTRUCTIONS REVIEWED WITH PT AND SPOUSE BOTH VERBALIZED UNDERSTANDING. ASSISTED PT IN DRESSING AND HOW TO PUT CLOTHES ON AND OFF. QUESTIONS AND CONCERNS ADDRESSED PT AMBULATED TO BATHROOM AND VOIDS WITHOUT DIFFICULTY
--- NOTE | 2021-03-03 14:45 | NUR ---
PT TAKEN TO FAMILY FRIENDS CAR VIA WHEELCHAIR , PT HAS NO NEEDS OR QUESTIONS AT THIS TIME
== END 2021-03-03 14:45 | disposition home or self-care (01) ==
LOC: D.CATH 10:53
PROVIDERS: ATTEND Internal Medicine Interventional Cardiology
DX: I44.2 Atrioventricular block, complete (principal); I49.5 Sick sinus syndrome; I10 Essential (primary) hypertension; E78.5 Hyperlipidemia, unspecified; R01.1 Cardiac murmur, unspecified; I65.29 Occlusion and stenosis of unspecified carotid artery; I35.0 Nonrheumatic aortic (valve) stenosis

== ENCOUNTER → 2021-04-14 10:56 | Outpatient (CLI) | payer MEDICARE, BC ==
[2021-03-03 11:16] VITALS: BMI 26.4
[~2021-04-14 10:56] MED LIST changes: +GLIPIZIDE5 MG PO; +OMEGA-3100 MG PO; +XALATAN 0.0052.5 ML EACH EYE
[2021-04-14 11:54] LABS: SARS-CoV-2 ANTIGEN NEGATIVE- SARS-COV-2 (NEGATIVE)
== END | disposition home or self-care (01) ==
LOC: D.RT 02-20 08:00 → D.RAD 02-20 09:00 → D.RT 03-16 11:00 → D.RAD 03-16 11:45 → D.RT 10:56
PROVIDERS: ATTEND Internal Medicine Pulmonary Disease
DX: R06.09 Other forms of dyspnea (principal); Z11.52 Encounter for screening for COVID-19